=== PATIENT | female | born 1970 | race Caucasian/White ===

== ENCOUNTER 2018-11-28 09:51 | Emergency (ER) | payer BC ==
[2018-11-28 09:55] VITALS: RESP 16; TEMP 97.9
[2018-11-28] MEDS ORDERED: MORPHINE SULFATE 2 MG/ML SYRINGE IM STA (10:18)
[2018-11-28] MEDS ORDERED: ONDANSETRON 4 MG TAB PO STA (10:19)
--- NOTE | 2018-11-28 10:30 | ED ---
Back Pain HPI - General Chief Complaint: Back Pain/Injury Stated Complaint: Back pain Time Seen by Provider: 11/28/18 10:02 Source: patient Limitations: no limitations - History of Present Illness Initial Comments: 47-year-old female with past medical history of hypertension presenting today for chief complaint of "spine burning 3 weeks". Patient states the past 3 weeks she has noticed the gradual onset of a burning sensation midline of her spine-lower aspect, she states that increases stretching. She states it began randomly, no trauma or surgical interventions. Patient states that since the burning sensation has been increasing with today being the worst. Patient states she has had previous injuries over 17 years ago. Patient states she did experience similar back pain in the past as given a steroid injection which alleviated her symptoms and she never needed further evaluation or treatment. Patient denies any fever, history of cancer, history of chronic steroid use, hx of IVDU, recent weight loss, history of tuberculosis or exposure to, loss of sensation of the lower extremities, lower extremity weakness, vaginal or perineal numbness, urinary retention, loss of bowel or bladder control, paresthesias of the lower extremities, no leg pain. Upon ROS pt admits to constipation, remainder of ROS (-), patient denies any recent shortness of breath, chest pain, abdominal pain, vomiting, numbness or tingling, dysuria or hematuria, diarrhea, headaches or visual changes, or any other complaints. - Related Data Home Medications Medication Instructions Recorded Confirmed Aspirin EC [Ecotrin Low Dose] 81 mg PO DAILY 11/28/18 11/28/18 Ibuprofen [Motrin Ib] 600 mg PO Q6H PRN 11/28/18 11/28/18 amLODIPine [Norvasc] 5 mg PO DAILY 11/28/18 11/28/18 Allergies Allergy/AdvReac Type Severity Reaction Status Date / Time codeine Allergy Nausea & Verified 11/28/18 10:13 Vomiting Review of Systems ROS Statement: Those systems with pertinent positive or pertinent negative responses have been documented in the HPI. ROS Other: All systems not noted in ROS Statement are negative. Constitutional: Reports: night sweats (on and off, this has been going on for a year. Pt attributed to age/perimenopause). Denies: fever, chills Respiratory: Denies: cough, dyspnea, wheezes Cardiovascular: Denies: chest pain, palpitations Endocrine: Denies: fatigue Gastrointestinal: Denies: abdominal pain, diarrhea Musculoskeletal: Reports: back pain (Reason sensation and spine) Skin: Denies: rash, lesions Neurological: Denies: headache, weakness, numbness, paresthesias, confusion, abnormal gait Past Medical History Past Medical History: Hypertension History of Any Multi-Drug Resistant Organisms: None Reported Past Surgical History: Tubal Ligation Past Psychological History: No Psychological Hx Reported Smoking Status: Current every day smoker Past Alcohol Use History: Occasional Past Drug Use History: None Reported General Exam - General Exam Comments Initial Comments: General: The patient is awake and alert, in no distress, and does not appear acutely ill. Eye: +3 mm pupils are equal, round and reactive to light, extra-ocular movements are intact. No nystagmus. There is normal conjunctiva bilaterally. No signs of icterus. Ears, nose, mouth and throat: There are moist mucous membranes and no oral lesions. Neck: The neck is supple, there is no tenderness or JVD. Cardiovascular: There is a regular rate and rhythm. No murmur, rub or gallop is appreciated. Respiratory: Lungs are clear to auscultation, respirations are non-labored, breath sounds are equal. No wheezes, stridor, rales, or rhonchi. Gastrointestinal: Soft, non-distended, non-tender abdomen without masses or organomegaly noted. There is no rebound or guarding present. No pulsating masses. No CVA tenderness. Bowel sounds are unremarkable. Musculoskeletal: Normal ROM of the lower extremities, no tenderness. Strength 5/5 of LE b/l. Sensation intact of the lower extremity equally bilaterally including the saddle region. Radial and DP pulses equal bilaterally 2+. Patient is tender midline and paravertberal of the upper lumbar/lower thoracic spine. No erythema or lesions. No warmth to palpation. +2 out of 5 deep tendon reflexes of the patellar and Achilles. Patient is able to heel and toe walk. Patient is ambulating without difficulty. Neurological: A&O x 3. CN II-XII intact, There are no obvious motor or sensory deficits. Coordination appears grossly intact. Speech is normal. Skin: Skin is warm and dry and no rashes or lesions are noted. Psychiatric: Cooperative, appropriate mood & affect, normal judgment. Limitations: no limitations Course Vital Signs 11/28/18 11/28/18 09:52 12:05 Temperature 97.9 F 97.9 F Pulse Rate 85 78 Respiratory 16 16 Rate Blood Pressure 153/89 149/78 O2 Sat by Pulse 97 98 Oximetry Medical Decision Making - Medical Decision Making 47-year-old female presenting with low back pain that increases with for flexion. Describes as a burning sensation. Patient given a steroid injection this morning. Upon arrival patient has elevated blood pressure reading however known history. Afebrile. Appearing well, nontoxic. Ambulating without difficulty. Physical exam and noted above, due to midline tenderness CT without contrast was obtained. CT of thoracic spine revealed degenerative disc disease, facet arthropathy. CT of the lumbar spine revealed minimal degenerative disc disease, severe was at L5-S1 with moderate left neural foraminal narrowing. There are no signs concerning for cauda equina at this time. Upon reevaluation after administration of 2 mg of IM morphine, patient states that she has significant improvement. She states she is not sure if is due to steroid injection, or the medication given in the emergency department. Patient was given and also a prescription for baclofen, naproxen and also steroids. Patient is instructed to take medications as instructed and follow- up with primary care provider with recommendations for outpatient MRI. Patient verbalized understanding of plan. Patient was given strict return parameters including immediate return for developing a fever. Patient is agreeable to plan as well as discharge, stating she is ready to go home. Patient discharged in stable condition appearing well. This case was discussed with Dr. Crouch in detail prior to patient's discharge reviewed imaging, as well as pt PMH. Disposition Clinical Impression: Back pain Disposition: HOME SELF-CARE Condition: Good Instructions: Acute Low Back Pain (ED) Additional Instructions: Please use medication as discussed. Please follow-up with family doctor in the next 2 days, I suggest getting outpatient MRI. Please return to emergency room if the symptoms increase or worsen or for any other concerns, including development of fever. Is patient prescribed a controlled substance at d/c from ED?: No Referrals: Jade Francois MD [Primary Care Provider] - 1-2 days Time of Disposition: 11:56
--- NOTE | 2018-11-28 11:10 | CT ---
EXAMINATION TYPE: CT lumbar spine wo con DATE OF EXAM: 11/28/2018 10:50 AM COMPARISON: None HISTORY: Back spine CT DLP: 555.4 mGycm Automated exposure control for dose reduction was used. TECHNIQUE: Unenhanced CT of the lumbar spine was performed. Bone and soft tissue window settings are submitted as well as coronal and sagittal reconstructions. FINDINGS: There are minimal degenerative changes of the lumbar spine a small interosseous heights. Th e lumbar vertebral body heights and alignment are maintained. No acute fracture or dislocation of the lumbar spine is seen. Pedicles and transverse processes appear unremarkable and intact. Minimal sacr oiliac joint space sclerosis is noted. Paraspinal muscles appear unremarkable on CT. Spinal canal is limited on CT. There is a mild levoscoliosis of the lumbar spine. L1-L2: Normal disc space height. No disc herniation protrusion or central stenosis. No facet joint arthropathy. No evidence for foraminal encroachment. L2-L3: There is a broad-based disc bulge resulting in mild bilateral neural foraminal narrowing witho ut spinal canal stenosis. L3-L4: There is a right eccentric broad-based disc bulge resulting in mild right neural foraminal chace rowing. No significant left neural foraminal narrowing or spinal canal stenosis. L4-L5: There is a broad-based disc bulge resulting in bilateral mild neural foraminal narrowing. No s [place] canal stenosis. L5-S1: There is a left eccentric disc bulge resulting in at least moderate left neural foraminal narr owing. This finding could be further evaluated with MRI. No significant right neural foraminal narrow ing or spinal stenosis. IMPRESSION: 1. No evidence of acute fracture or malalignment of the lumbar spine. 2. Mild levoscoliosis of the lumbar spine. 3. Minimal degenerative disc disease of the lumbar spine most severe at L5-S1 with at least moderate left neural foraminal narrowing. MRI could evaluate for disc herniation and better assess the degree of neural foraminal narrowing and/or spinal canal stenosis.
--- NOTE | 2018-11-28 11:15 | CT ---
EXAMINATION TYPE: CT thoracic spine wo con DATE OF EXAM: 11/28/2018 COMPARISON: None HISTORY: Back pain CT DLP: 483.5 mGycm Automated exposure control for dose reduction was used. Helical acquisition through the cervical spin e. Coronal and sagittal reconstructions. FINDINGS: There is a spinal curvature. Multilevel spondylosis is present. Facet arthropathy changes are present noted incidentally. No evident spinal stenosis. No disc herniation is seen. Thoracic vertebral steffanie s show preserved height, alignment, bone mineralization. No significant foraminal encroachment. The t horacic vertebral bodies are intact. Degenerative disc changes noted in the lower cervical spine. IMPRESSION: DEGENERATIVE DISC DISEASE, FACET ARTHROPATHY. THORACIC MRI MAY BE OF BENEFIT. Additional findings abo ve.
[2018-11-28 12:07] VITALS: BP 149/78; PULSE 78
== END 2018-11-28 12:05 | disposition home or self-care (01) ==
LOC: EC 09:51
DX: M48.07 Spinal stenosis, lumbosacral region (principal); M51.34 Other intervertebral disc degeneration, thoracic region; M51.37 Other intervertebral disc degeneration, lumbosacral region; M46.94 Unspecified inflammatory spondylopathy, thoracic region; I10 Essential (primary) hypertension; F17.200 Nicotine dependence, unspecified, uncomplicated; Z79.82 Long term (current) use of aspirin; Z79.899 Other long term (current) drug therapy; Z88.5 Allergy status to narcotic agent
CPT/HCPCS: 72128; 72131; 99283; 96372; J2270

== ENCOUNTER 2019-07-15 19:50 | Emergency (ER) | payer BC ==
[2019-07-15] MEDS ORDERED: KETOROLAC 30 MG/ML 1 ML VIAL IVP STA (20:11)
[2019-07-15] MEDS ORDERED: SODIUM CHLORIDE 0.9% 1,000 ML IV STA (20:11)
[2019-07-15] MEDS ORDERED: HYDROmorphone 0.5 MG/0.5 ML SYRINGE IVP STA (20:11)
[2019-07-15] MEDS ORDERED: SODIUM CHLORIDE 0.9% 500 ML 500 ML IV STA (20:11)
[2019-07-15] MEDS ORDERED: ONDANSETRON 4 MG/2 ML VIAL IVP STA (20:11)
[2019-07-15 20:12] VITALS: RESP 18
[2019-07-15 20:21] LABS: Appearance,Urine Clear (Clear); Bilirubin,Urine Negative (Negative); Blood,Urine Negative (Negative); Color,Urine Colorless; Glucose,Urine (UA) Negative (Negative); Ketones,Urine Negative (Negative); Leukocyte Esterase,Urine Negative (Negative); Nitrite,Urine Negative (Negative); Protein,Urine Negative (Negative); Specific Gravity,Urine 1.001 (1.001-1.035); Urobilinogen,Urine <2.0 mg/dL (<2.0)
[2019-07-15 20:29] LABS: Basophils # (A) 0.1 k/uL (0-0.2); Basophils % (A) 1 %; Eosinophils # (A) 0.5 k/uL (0-0.7); Eosinophils % (A) 5 %; HCT 45.3 % (34.0-46.0); Lymphocytes # (A) 2.5 k/uL (1.0-4.8); Lymphocytes % (A) 25 %; MCH 29.9 pg (25.0-35.0); MCHC 33.1 g/dL (31.0-37.0); MCV 90.3 fL (80.0-100.0); Mean Platelet Volume 6.5; Monocytes # (A) 0.5 k/uL (0-1.0); Monocytes % (A) 5 %; Neutrophils # (A) 6.1 k/uL (1.3-7.7); Neutrophils % (A) 62 %; Platelet Count 340 k/uL (150-450); RBC 5.02 m/uL (3.80-5.40); RDW 12.8 % (11.5-15.5); WBC 9.9 k/uL (3.8-10.6)
[2019-07-15 20:38] LABS: ALT 24 U/L (9-52); AST 25 U/L (14-36); African American GFR (CKD) >90 (>60 ml/min/1.73 sqM); Albumin 4.7 g/dL (3.5-5.0); Alkaline Phosphatase 84 U/L (38-126); Amylase 76 U/L (30-110); Anion Gap 10 mmol/L; Blood Urea Nitrogen 14 mg/dL (7-17); Calcium 9.8 mg/dL (8.4-10.2); Carbon Dioxide 23 mmol/L (22-30); Chloride 108 mmol/L (98-107); Glucose 82 mg/dL (74-99); Non-African American GFR(CKD) >90 (>60 ml/min/1.73 sqM); Potassium 3.9 mmol/L (3.5-5.1); Sodium 141 mmol/L (137-145); Total Bilirubin 0.3 mg/dL (0.2-1.3); Total Protein 7.4 g/dL (6.3-8.2)
--- NOTE | 2019-07-15 20:38 | ED ---
Back Pain HPI - General Chief Complaint: Back Pain/Injury Stated Complaint: Flank pain Time Seen by Provider: 07/15/19 19:59 Source: patient, RN notes reviewed Limitations: no limitations - History of Present Illness Initial Comments: 48-year-old female presents emergency from chief complaint left flank pain. Patient states she's had some pain region just felt there was just her regular back pain but states this pain is intense. Patient states it's not helping even though she's been taken mobic. Patient states that she has no bowel bladder incontinence or retention she did have recent surgery on her right hand at constipation related to pain medication. Patient has no vomiting or nausea. No fevers or chills. Patient states the pain is worse with movement. - Related Data Home Medications Medication Instructions Recorded Confirmed Aspirin EC [Ecotrin Low Dose] 81 mg PO DAILY 11/28/18 11/28/18 Ibuprofen [Motrin Ib] 600 mg PO Q6H PRN 11/28/18 11/28/18 amLODIPine [Norvasc] 5 mg PO DAILY 11/28/18 11/28/18 Previous Rx's Medication Instructions Recorded HYDROcodone/APAP 7.5-325MG [[place] 1 tab PO Q6HR PRN 3 Days #12 tab 07/15/19 7.5-325] Methocarbamol [Robaxin] 500 mg PO TID PRN #15 tab 07/15/19 Allergies Allergy/AdvReac Type Severity Reaction Status Date / Time No Known Allergies Allergy Verified 07/15/19 20:05 Review of Systems ROS Statement: Those systems with pertinent positive or pertinent negative responses have been documented in the HPI. ROS Other: All systems not noted in ROS Statement are negative. Past Medical History Past Medical History: Hypertension Additional Past Medical History / Comment(s): back pain History of Any Multi-Drug Resistant Organisms: None Reported Past Surgical History: Tubal Ligation Additional Past Surgical History / Comment(s): carpel tunnel Past Psychological History: No Psychological Hx Reported Smoking Status: Current every day smoker Past Alcohol Use History: Occasional Past Drug Use History: None Reported General Exam Limitations: no limitations General appearance: alert, in no apparent distress Neck exam: Present: normal inspection, full ROM. Absent: tenderness, meningismus, lymphadenopathy Respiratory exam: Present: normal lung sounds bilaterally. Absent: respiratory distress, wheezes, rales, rhonchi, stridor Cardiovascular Exam: Present: regular rate, normal rhythm, normal heart sounds. Absent: systolic murmur, diastolic murmur, rubs, gallop, clicks Extremities exam: Present: normal inspection, full ROM, normal capillary refill. Absent: tenderness, pedal edema, joint swelling, calf tenderness Back exam: Present: full ROM. Absent: tenderness, CVA tenderness (R), CVA tenderness (L), paraspinal tenderness, vertebral tenderness Neurological exam: Present: alert, oriented X3, CN II-XII intact Skin exam: Present: warm, dry, intact, normal color. Absent: rash Course Vital Signs 07/15/19 20:02 Temperature 97.6 F Pulse Rate 82 Respiratory 18 Rate Blood Pressure 143/90 O2 Sat by Pulse 98 Oximetry Medical Decision Making - Medical Decision Making 48-year-old female presents emergency department for left flank pain. CT shows some nonspecific perinephric edema, urinalysis labs unremarkable. Patient's p ain may be muscle skeletal nature she will follow-up with urology for this edema and will be given pain medication. Close follow-up was discussed. - Lab Data Result diagrams: 07/15/19 20:20 07/15/19 20:20 Lab Results 07/15/19 07/15/19 07/15/19 Range/Units 20:00 20:20 20:20 WBC 9.9 (3.8-10.6) k/uL RBC 5.02 (3.80-5.40) m/uL Hgb 15.0 (11.4-16.0) gm/dL Hct 45.3 (34.0-46.0) % MCV 90.3 (80.0-100.0) fL MCH 29.9 (25.0-35.0) pg MCHC 33.1 (31.0-37.0) g/dL RDW 12.8 (11.5-15.5) % Plt Count 340 (150-450) k/uL Neutrophils % 62 % Lymphocytes % 25 % Monocytes % 5 % Eosinophils % 5 % Basophils % 1 % Neutrophils # 6.1 (1.3-7.7) k/uL Lymphocytes # 2.5 (1.0-4.8) k/uL Monocytes # 0.5 (0-1.0) k/uL Eosinophils # 0.5 (0-0.7) k/uL Basophils # 0.1 (0-0.2) k/uL Sodium 141 (137-145) mmol/L Potassium 3.9 (3.5-5.1) mmol/L Chloride 108 H (98-107) mmol/L Carbon Dioxide 23 (22-30) mmol/L Anion Gap 10 mmol/L BUN 14 (7-17) mg/dL Creatinine 0.63 (0.52-1.04) mg/dL Est GFR (CKD-EPI)AfAm >90 (>60 ml/min/1.73 sqM) Est GFR (CKD-EPI)NonAf >90 (>60 ml/min/1.73 sqM) Glucose 82 (74-99) mg/dL Calcium 9.8 (8.4-10.2) mg/dL Total Bilirubin 0.3 (0.2-1.3) mg/dL AST 25 (14-36) U/L ALT 24 (9-52) U/L Alkaline Phosphatase 84 (38-126) U/L Total Protein 7.4 (6.3-8.2) g/dL Albumin 4.7 (3.5-5.0) g/dL Amylase 76 (30-110) U/L Lipase 194 (23-300) U/L Urine Color Colorless Urine Appearance Clear (Clear) Urine pH 7.0 (5.0-8.0) Ur Specific [place] 1.001 (1.001-1.035) Urine Protein Negative (Negative) Urine Glucose (UA) Negative (Negative) Urine Ketones Negative (Negative) Urine Blood Negative (Negative) Urine Nitrite Negative (Negative) Urine Bilirubin Negative (Negative) Urine Urobilinogen <2.0 (<2.0) mg/dL Ur Leukocyte Esterase Negative (Negative) Disposition Clinical Impression: Mid back pain Narrative: pernephric edema Disposition: HOME SELF-CARE Condition: Stable Instructions (If sedation given, give patient instructions): Acute Low Back Pain (ED) Additional Instructions: Please return to the Emergency Department if symptoms worsen or any other concerns. Prescriptions: HYDROcodone/APAP 7.5-325MG [[place] 7.5-325] 1 tab PO Q6HR PRN 3 Days #12 tab PRN Reason: Pain Methocarbamol [Robaxin] 500 mg PO TID PRN #15 tab PRN Reason: muscle spasms Is patient prescribed a controlled substance at d/c from ED?: Yes When asked, does pt state using other controlled substances?: No If prescribed controlled substance>3 days was MAPS reviewed?: Prescribed <3 Days If opioid is for acute pain is fill amount 7 days or less?: Yes If Rx opioid, was Start Talking consent form obtained?: Yes Referrals: Jade Francois MD [Primary Care Provider] - 1-2 days Víctor Malone MD [STAFF PHYSICIAN] - 1-2 days Time of Disposition: 21:17
--- NOTE | 2019-07-15 21:03 | CT ---
EXAMINATION TYPE: CT abdomen pelvis w con DATE OF EXAM: 07/15/2019 COMPARISON: None HISTORY: LLQ/FLANK PAIN CT DLP: 761.7 mGycm Automated exposure control for dose reduction was used. TECHNIQUE: Helical acquisition of images was performed from the lung bases through the pelvis. CONTRAST: Performed without Oral Contrast and with IV Contrast, patient injected with 100 mL of Isovue 300. FINDINGS: There is some mild atelectasis at the lung bases. Heart size is normal. There is no pericardial effus ion. There is no pleural effusion. Liver appears normal. Gallbladder appears normal. Spleen appears n ormal. There is no pancreatic mass. Bile ducts are not dilated. Stomach appears normal. There is no adrenal mass. Kidneys show satisfactory contrast opacification. There is no hydronephrosi s. There is minimal bilateral perinephric edema. There is no evidence of a renal mass. There is no re troperitoneal adenopathy. Bladder distends smoothly. There is no inguinal hernia. There is no free fl uid in the pelvis. There is no sign of a bowel obstruction. Appendix appears normal. There is no free air or fluid. Bony pelvis is intact. Lumbar spine is intact . There is no compression fracture. IMPRESSION: THERE IS MINIMAL BILATERAL PERINEPHRIC EDEMA OF UNCERTAIN SIGNIFICANCE. NO RENAL MASS OR OBSTRUCTION. NO EVIDENCE OF RENAL CALCULUS. NORMAL APPENDIX. MILD ATELECTASIS AT THE LUNG BASES.
[2019-07-15 21:30] VITALS: BP 127/90; PULSE 68; TEMP 98
== END 2019-07-15 21:30 | disposition home or self-care (01) ==
LOC: EC 19:50
DX: M54.9 Dorsalgia, unspecified (principal); R10.9 Unspecified abdominal pain; N28.89 Other specified disorders of kidney and ureter; I10 Essential (primary) hypertension; F17.200 Nicotine dependence, unspecified, uncomplicated; Z98.51 Tubal ligation status; Z79.82 Long term (current) use of aspirin; Z79.899 Other long term (current) drug therapy
CPT/HCPCS: 36415; 80053; 82150; 83690; 85025; 81003; 74177; 99284; 96374; 96375 ×2; 96361; J2405; J1885; J1170; Q9967

== ENCOUNTER 2019-07-18 08:04 | Emergency (ER) | payer BC ==
[2019-07-18 08:31] VITALS: BP 127/85; PULSE 90; RESP 20; TEMP 97.5
[2019-07-18 09:00] LABS: Appearance,Urine Cloudy (Clear); Bacteria,Urine Rare /hpf; Bilirubin,Urine Negative (Negative); Blood,Urine Negative (Negative); Color,Urine Light Yellow; Glucose,Urine (UA) Negative (Negative); Ketones,Urine Negative (Negative); Leukocyte Esterase,Urine Negative (Negative); Nitrite,Urine Negative (Negative); Protein,Urine Negative (Negative); RBC,Urine 1 /hpf (0-5); Specific Gravity,Urine 1.005 (1.001-1.035); Squamous Epithelial Cell,Urine 24 /hpf (0-4); Urobilinogen,Urine <2.0 mg/dL (<2.0)
[2019-07-18] MEDS ORDERED: ONDANSETRON 4 MG/2 ML VIAL IVP STA (09:37)
[2019-07-18] MEDS ORDERED: ORPHENADRINE 30 MG/ML 2 ML VIAL IVP STA (09:37)
[2019-07-18] MEDS ORDERED: HYDROmorphone 1 MG/ML 1 ML SYRINGE IVP STA (09:37)
[2019-07-18] MEDS ORDERED: SODIUM CHLORIDE 0.9% 1,000 ML IV STA (09:37)
[2019-07-18] MEDS ORDERED: HYDROmorphone 0.5 MG/0.5 ML SYRINGE IVP STA (09:58)
[2019-07-18 10:40] LABS: Basophils # (A) 0.1 k/uL (0-0.2); Basophils % (A) 1 %; Eosinophils # (A) 0.3 k/uL (0-0.7); Eosinophils % (A) 3 %; HGB 15.2 gm/dL (11.4-16.0); Lymphocytes # (A) 1.6 k/uL (1.0-4.8); Lymphocytes % (A) 21 %; MCH 30.3 pg (25.0-35.0); MCHC 33.1 g/dL (31.0-37.0); MCV 91.4 fL (80.0-100.0); Mean Platelet Volume 6.3; Monocytes # (A) 0.5 k/uL (0-1.0); Monocytes % (A) 6 %; Neutrophils # (A) 5.4 k/uL (1.3-7.7); Neutrophils % (A) 68 %; Platelet Count 370 k/uL (150-450); RBC 5.03 m/uL (3.80-5.40)
[2019-07-18 10:43] LABS: ALT 43 U/L (9-52); AST 42 U/L (14-36); African American GFR (CKD) >90 (>60 ml/min/1.73 sqM); Albumin 4.4 g/dL (3.5-5.0); Alkaline Phosphatase 78 U/L (38-126); Amylase 62 U/L (30-110); Anion Gap 10 mmol/L; Blood Urea Nitrogen 8 mg/dL (7-17); Calcium 9.5 mg/dL (8.4-10.2); Carbon Dioxide 26 mmol/L (22-30); Chloride 105 mmol/L (98-107); Glucose 82 mg/dL (74-99); Sodium 141 mmol/L (137-145); Total Bilirubin 0.5 mg/dL (0.2-1.3); Total Protein 7.3 g/dL (6.3-8.2)
--- NOTE | 2019-07-18 10:43 | ED ---
Abdominal Pain HPI - General Chief Complaint: Abdominal Pain Stated Complaint: LEFT FLANK PAIN Time Seen by Provider: 07/18/19 09:37 Source: patient, RN notes reviewed Mode of arrival: ambulatory Limitations: no limitations - History of Present Illness Initial Comments: 48-year-old female presents emergency Department chief complaint of left-sided pain. Patient states she's had [address] of abdomen and pelvis states the pain is more in her upper abdomen and back but states it moved up into her chest region. Patient states she has no anterior she has more posterior left chest. It up into her neck. She doesn't admit that some symptoms do worsen with movement she has a history of hypertension. Patient also states that she had recent surgery on her right hand has been very sedentary. Patient reports no fevers or chills denies any current nausea vomiting diarrhea she has noted some constipation though she contributes this to her pain meds. - Related Data Home Medications Medication Instructions Recorded Confirmed amLODIPine [Norvasc] 10 mg PO DAILY 07/18/19 07/18/19 Previous Rx's Medication Instructions Recorded HYDROcodone/APAP 7.5-325MG [[place] 1 tab PO Q6HR PRN 3 Days #12 tab 07/15/19 7.5-325] Methocarbamol [Robaxin] 500 mg PO TID PRN #15 tab 07/15/19 Allergies Allergy/AdvReac Type Severity Reaction Status Date / Time No Known Allergies Allergy Verified 07/18/19 09:36 Review of Systems ROS Statement: Those systems with pertinent positive or pertinent negative responses have been documented in the HPI. ROS Other: All systems not noted in ROS Statement are negative. Past Medical History Past Medical History: Hypertension Additional Past Medical History / Comment(s): back pain History of Any Multi-Drug Resistant Organisms: None Reported Past Surgical History: Tubal Ligation Additional Past Surgical History / Comment(s): carpel tunnel Past Psychological History: No Psychological Hx Reported Smoking Status: Current every day smoker Past Alcohol Use History: Occasional Past Drug Use History: None Reported General Exam Limitations: no limitations General appearance: alert, in no apparent distress Head exam: Present: atraumatic, normocephalic, normal inspection Eye exam: Present: normal appearance, PERRL, EOMI. Absent: scleral icterus, conjunctival injection, periorbital swelling ENT exam: Present: normal exam, normal oropharynx, mucous membranes moist Neck exam: Present: normal inspection, full ROM. Absent: tenderness, meningismus, lymphadenopathy Respiratory exam: Present: normal lung sounds bilaterally, chest wall tenderness (Left-sided posterior). Absent: respiratory distress, wheezes, rales, rhonchi, stridor Cardiovascular Exam: Present: regular rate, normal rhythm, normal heart sounds. Absent: systolic murmur, diastolic murmur, rubs, gallop, clicks GI/Abdominal exam: Present: soft, normal bowel sounds. Absent: distended, tende rness, guarding, rebound, rigid Back exam: Absent: CVA tenderness (R), CVA tenderness (L) Skin exam: Present: warm, dry, intact, normal color. Absent: rash Course Vital Signs 07/18/19 08:28 Temperature 97.5 F L Pulse Rate 90 Respiratory 20 Rate Blood Pressure 127/85 O2 Sat by Pulse 99 Oximetry Medical Decision Making - Medical Decision Making 48-year-old female presents emergency department for side pain. Patient's pain is reproducible worse with movement. This felt to be muscle skeletal as she was diagnosed a few days ago with. Patient has no current chest pain. Patient is improved after pain meds and Norflex. Patient states that she prefers to be discharged and will follow-up with her neurologist return parameters were discussed. - Lab Data Result diagrams: 07/18/19 10:12 07/18/19 10:12 Lab Results 07/18/19 07/18/19 07/18/19 Range/Units 08:30 10:12 10:12 WBC 8.0 (3.8-10.6) k/uL RBC 5.03 (3.80-5.40) m/uL Hgb 15.2 (11.4-16.0) gm/dL Hct 46.0 (34.0-46.0) % MCV 91.4 (80.0-100.0) fL MCH 30.3 (25.0-35.0) pg MCHC 33.1 (31.0-37.0) g/dL RDW 13.0 (11.5-15.5) % Plt Count 370 (150-450) k/uL Neutrophils % 68 % Lymphocytes % 21 % Monocytes % 6 % Eosinophils % 3 % Basophils % 1 % Neutrophils # 5.4 (1.3-7.7) k/uL Lymphocytes # 1.6 (1.0-4.8) k/uL Monocytes # 0.5 (0-1.0) k/uL Eosinophils # 0.3 (0-0.7) k/uL Basophils # 0.1 (0-0.2) k/uL D-Dimer (<0.60) mg/L FEU Sodium 141 (137-145) mmol/L Potassium 4.0 (3.5-5.1) mmol/L Chloride 105 (98-107) mmol/L Carbon Dioxide 26 (22-30) mmol/L Anion Gap 10 mmol/L BUN 8 (7-17) mg/dL Creatinine 0.60 (0.52-1.04) mg/dL Est GFR (CKD-EPI)AfAm >90 (>60 ml/min/1.73 sqM) Est GFR (CKD-EPI)NonAf >90 (>60 ml/min/1.73 sqM) Glucose 82 (74-99) mg/dL Calcium 9.5 (8.4-10.2) mg/dL Total Bilirubin 0.5 (0.2-1.3) mg/dL AST 42 H (14-36) U/L ALT 43 (9-52) U/L Alkaline Phosphatase 78 (38-126) U/L Troponin I (0.000-0.034) ng/mL Total Protein 7.3 (6.3-8.2) g/dL Albumin 4.4 (3.5-5.0) g/dL Amylase 62 (30-110) U/L Lipase 114 (23-300) U/L Urine Color Light Yellow Urine Appearance Cloudy H (Clear) Urine pH 6.0 (5.0-8.0) Ur Specific [place] 1.005 (1.001-1.035) Urine Protein Negative (Negative) Urine Glucose (UA) Negative (Negative) Urine Ketones Negative (Negative) Urine Blood Negative (Negative) Urine Nitrite Negative (Negative) Urine Bilirubin Negative (Negative) Urine Urobilinogen <2.0 (<2.0) mg/dL Ur Leukocyte Esterase Negative (Negative) Urine RBC 1 (0-5) /hpf Urine WBC 1 (0-5) /hpf Ur Squamous Epith Cells 24 H (0-4) /hpf Urine Bacteria Rare H (None) /hpf 07/18/19 07/18/19 Range/Units 10:12 10:12 WBC (3.8-10.6) k/uL RBC (3.80-5.40) m/uL Hgb (11.4-16.0) gm/dL Hct (34.0-46.0) % MCV (80.0-100.0) fL MCH (25.0-35.0) pg MCHC (31.0-37.0) g/dL RDW (11.5-15.5) % Plt Count (150-450) k/uL Neutrophils % % Lymphocytes % % Monocytes % % Eosinophils % % Basophils % % Neutrophils # (1.3-7.7) k/uL Lymphocytes # (1.0-4.8) k/uL Monocytes # (0-1.0) k/uL Eosinophils # (0-0.7) k/uL Basophils # (0-0.2) k/uL D-Dimer 0.65 H (<0.60) mg/L FEU Sodium (137-145) mmol/L Potassium (3.5-5.1) mmol/L Chloride (98-107) mmol/L Carbon Dioxide (22-30) mmol/L Anion Gap mmol/L BUN (7-17) mg/dL Creatinine (0.52-1.04) mg/dL Est GFR (CKD-EPI)AfAm (>60 ml/min/1.73 sqM) Est GFR (CKD-EPI)NonAf (>60 ml/min/1.73 sqM) Glucose (74-99) mg/dL Calcium (8.4-10.2) mg/dL Total Bilirubin (0.2-1.3) mg/dL AST (14-36) U/L ALT (9-52) U/L Alkaline Phosphatase (38-126) U/L Troponin I <0.012 (0.000-0.034) ng/mL Total Protein (6.3-8.2) g/dL Albumin (3.5-5.0) g/dL Amylase (30-110) U/L Lipase (23-300) U/L Urine Color Urine Appearance (Clear) Urine pH (5.0-8.0) Ur Specific [place] (1.001-1.035) Urine Protein (Negative) Urine Glucose (UA) (Negative) Urine Ketones (Negative) Urine Blood (Negative) Urine Nitrite (Negative) Urine Bilirubin (Negative) Urine Urobilinogen (<2.0) mg/dL Ur Leukocyte Esterase (Negative) Urine RBC (0-5) /hpf Urine WBC (0-5) /hpf Ur Squamous Epith Cells (0-4) /hpf Urine Bacteria (None) /hpf - EKG Data EKG Comments: EKG performed at 1004 normal sinus rhythm rate of 68 VA 146/82 QT/QTC 426 for [address] elevation or depression. Disposition Clinical Impression: Thoracic back pain Disposition: HOME SELF-CARE Condition: Stable Instructions (If sedation given, give patient instructions): Back Pain (ED) Additional Instructions: Please return to the Emergency Department if symptoms worsen or any other concerns. Is patient prescribed a controlled substance at d/c from ED?: No Referrals: Jade Francois MD [Primary Care Provider] - 1-2 days Time of Disposition: 12:03
--- NOTE | 2019-07-18 11:37 | XR ---
EXAMINATION TYPE: XR chest 2V DATE OF EXAM: 07/18/2019 COMPARISON: NONE HISTORY: Left flank pain and chest pain TECHNIQUE: Frontal and lateral views of the chest are obtained. FINDINGS: There is no focal air space opacity, pleural effusion, or pneumothorax seen. The cardiac silhouette size is within normal limits. The osseous structures are intact. Minimal multilevel dege nerative changes of the spine. IMPRESSION: No acute cardiopulmonary process.
--- NOTE | 2019-07-18 11:38 | CT ---
EXAMINATION TYPE: CT chest angio for PE DATE OF EXAM: 07/18/2019 COMPARISON: NONE HISTORY: SOB, elevated d dimer, Lt chest pain CT DLP: 272.4 mGycm. Automated Exposure Control for Dose Reduction was Utilized. CONTRAST: CTA scan of the thorax is performed with IV Contrast, patient injected with 72 mL of Isovue 370, pulm onary embolism protocol. MIP Images are created on CT scanner and reviewed. FINDINGS: LUNGS: There is bibasilar linear scarring and/or atelectasis, left greater than right. No suspicious focal consolidation. No pleural effusion or pneumothorax. Tracheobronchial tree is patent. No suspici ous nodules or masses. MEDIASTINUM: There is satisfactory enhancement of the pulmonary artery and its branches, there is no CT evidence for pulmonary embolism. There are no greater than 1 cm hilar or mediastinal lymph nodes. No cardiomegaly or pericardial effusion is seen. OTHER: Slight S-shaped scoliotic curvature. IMPRESSION: No CT evidence for acute pulmonary embolism. No suspicious acute pulmonary process.
== END 2019-07-18 12:23 | disposition home or self-care (01) ==
LOC: EC 08:04
DX: M54.6 Pain in thoracic spine (principal); I10 Essential (primary) hypertension; F17.200 Nicotine dependence, unspecified, uncomplicated; Z79.899 Other long term (current) drug therapy
CPT/HCPCS: 36415; 93005; 85379; 80053; 82150; 83690; 84484; 85025; 81001; 71046; 71275; 99284; 96374; 96375 ×2; 96361 ×2; J2360; J2405; J1170; Q9967

== ENCOUNTER 2021-10-21 08:54 | Emergency (ER) | payer BC ==
[2021-10-21 09:24] VITALS: TEMP 98
--- NOTE | 2021-10-21 11:51 | CT ---
EXAMINATION TYPE: CT brain cspine wo con DATE OF EXAM: 10/21/2021 COMPARISON: CT brain and cervical spine March 28, 2010 HISTORY: Left sided neck and arm pain with arm weakness. Headache. CT DLP: 1403.4 mGycm. Automated Exposure Control for Dose Reduction was Utilized. TECHNIQUE: CT scan of the head and cervical spine are performed without contrast. FINDINGS: There is no acute intracranial hemorrhage, mass effect, or midline shift identified. The ventricles and sulci are within normal limits in size. Snow-white matter differentiation fairly well -preserved. The globes are intact and the visualized sinuses are clear. Cervical spine is visualized in its entirety from C1 through upper thoracic levels and demonstrates s ome loss of normal cervical curvature more prominent than prior without evidence of acute fracture or dislocation. Prevertebral soft tissue appears within normal limits. The C1-C2 articulation is norm al limits on the coronal images. Vertebral body heights are maintained. Mild to moderate disc space narrowing C5-C6 and moderate disc space narrowing C6-C7 levels with moderate anterior and posterior s purring is more prominent than prior study. Posterior spur disc complexes efface the anterior thecal sac at these levels greater at C6-C7 level and are more prominent than prior study. Axial images show thyroid gland to appear within normal limits. Lung apices show no pneumothorax. IMPRESSION: No acute findings are evident.
[2021-10-21] MEDS ORDERED: ORPHENADRINE 30 MG/ML 2 ML VIAL IM STA (12:35)
--- NOTE | 2021-10-21 12:54 | ED ---
Neck Injury/Pain HPI - General Chief Complaint: Neck Pain/Injury Stated Complaint: Lt Arm Numbness Time Seen by Provider: 10/21/21 12:31 Source: RN notes reviewed Mode of arrival: ambulatory Limitations: no limitations - History of Present Illness Initial Comments: Patient is a 50-year-old female that presents to the emergency department with left-sided neck pain. She notes she was reaching into a cupboard when she felt a pop. She notes this was approximately 6 days ago. She came in for evaluation today due to continuing pain. Patient notes that she is a side sleeper and does cross her arms over her chest on her side. Patient denied any injury or trauma. She was otherwise well-appearing. She did have full range of motion strength and sensation in her bilateral upper extremities. Patient denied any chest pain shortness of breath nausea vomiting diarrhea constipation fever fatigue chills. - Related Data Home Medications Medication Instructions Recorded Confirmed amLODIPine [Norvasc] 10 mg PO DAILY 07/18/19 07/18/19 Previous Rx's Medication Instructions Recorded HYDROcodone/APAP 7.5-325MG [[place] 1 tab PO Q6HR PRN 3 Days #12 tab 07/15/19 7.5-325] methocarbamoL [Robaxin] 500 mg PO TID PRN #15 tab 07/15/19 Baclofen 5 mg PO TID 5 Days #15 tablet 10/21/21 Allergies Allergy/AdvReac Type Severity Reaction Status Date / Time fentanyl AdvReac Nausea & Verified 10/21/21 09:24 Vomiting Review of Systems ROS Statement: Those systems with pertinent positive or pertinent negative responses have been documented in the HPI. ROS Other: All systems not noted in ROS Statement are negative. Past Medical History Past Medical History: Hypertension Additional Past Medical History / Comment(s): back pain, CRPS History of Any Multi-Drug Resistant Organisms: None Reported Past Surgical History: Tubal Ligation Additional Past Surgical History / Comment(s): carpel tunnel Past Psychological History: No Psychological Hx Reported Past Alcohol Use History: Occasional Past Drug Use History: None Reported General Exam Limitations: no limitations General appearance: alert, in no apparent distress Head exam: Present: atraumatic, normocephalic, normal inspection Eye exam: Present: normal appearance, PERRL, EOMI. Absent: scleral icterus, conjunctival injection, periorbital swelling ENT exam: Present: normal exam, mucous membranes moist Neck exam: Present: normal inspection, tenderness (Left sided scalenes and upper trapezius point tenderness.). Absent: meningismus, lymphadenopathy Respiratory exam: Present: normal lung sounds bilaterally. Absent: respiratory distress, wheezes, rales, rhonchi, stridor Cardiovascular Exam: Present: regular rate, normal rhythm, normal heart sounds. Absent: systolic murmur, diastolic murmur, rubs, gallop, clicks GI/Abdominal exam: Present: soft, normal bowel sounds. Absent: distended, tenderness, guarding, rebound, rigid Extremities exam: Present: normal inspection, full ROM, normal capillary refill. Absent: tenderness, pedal edema, joint swelling, calf tenderness Neurological exam: Present: alert, oriented X3 Psychiatric exam: Present: normal affect, normal mood Skin exam: Present: warm, dry, intact, normal color. Absent: rash Course Vital Signs 10/21/21 09:19 Temperature 98.0 F Pulse Rate 89 Respiratory 18 Rate Blood Pressure 142/89 O2 Sat by Pulse 96 Oximetry Medical Decision Making - Medical Decision Making 50-year-old female complaining of left-sided neck pain with no injury or trauma. CT of the head and C-spine ordered. CT negative for any acute process. Given patient's point tenderness and history most likely has a muscle strain of the left side of her neck muscles. 60 mg of Norflex ordered. Patient is agreeable with discharge home with follow-up to primary care. This discussed with Dr. Crouch, patient discharge home. - Radiology Data Radiology results: report reviewed, image reviewed CT of the head and C-spine: No acute findings are evident. Disposition Clinical Impression: Cervical muscle strain Disposition: HOME SELF-CARE Condition: Stable Instructions (If sedation given, give patient instructions): Cervical Strain (ED) Additional Instructions: Please return to the Emergency Department if symptoms worsen or any other concerns. Follow-up with primary care 1-2 days. Take muscle relaxer as prescribed. Is patient prescribed a controlled substance at d/c from ED?: No Referrals: Jade Francois MD [Primary Care Provider] - 1-2 days Time of Disposition: 13:24
[2021-10-21 14:03] VITALS: BP 124/70; PULSE 74; RESP 16
== END 2021-10-21 14:02 | disposition home or self-care (01) ==
LOC: EC 08:54
DX: S16.1XXA Strain of muscle, fascia and tendon at neck level, initial encounter (principal); I10 Essential (primary) hypertension; Z98.51 Tubal ligation status; X50.0XXA Overexertion from strenuous movement or load, initial encounter
CPT/HCPCS: 99284; 96372; 72125; 70450; J2360; 93005

== ENCOUNTER → 2023-04-12 | Outpatient (CLI) | payer BC, MEDICARE ==
--- NOTE | 2023-04-12 07:12 | MR ---
EXAMINATION TYPE: MR lumbar spine wo con DATE OF EXAM: 04/12/2023 COMPARISON: NONE HISTORY: Back pain into rt side x 4 years TECHNIQUE: Multiplanar, multisequence imaging of the lumbar spine is performed without IV contrast. FINDINGS: There is levoconvex scoliosis centered at L3 level. There is slight grade 1 retrolisthesis of L2 on L3 on sagittal images. Vertebral body heights are maintained. There is multilevel disc desic cation with mild to moderate disc space narrowing at L2-L3 and mild disc space narrowing at L4-L5 lev els. Modic type I endplate changes noted at L2-L3 level. The conus medullaris is normal in position and signal ending mid L1 level. Axial images at T12-L1 and L1-L2 levels appear within normal limits. Axial images at L2-L3 level shows mild broad-based disc bulge mildly effacing the anterior thecal sac along with mild right-sided facet arthropathy slightly effacing right lateral thecal sac. Bilateral neural foramina remain patent. Axial images at L3-L4 level shows mild to moderate broad disc bulge minimally effacing the anterior t hecal sac along with mild facet arthropathy bilaterally. There is [id number] right-sided anteri or inferior neural foraminal narrowing. Axial images at L4-L5 level show mild broad disc bulge and mild facet arthropathy bilaterally. There is minimal effacement of the anterior thecal sac. There is [id number] right-sided anterior infe rior neural foraminal narrowing. Left-sided neural foramen is patent. Axial images at L5-S1 level shows mild to moderate facet arthropathy bilaterally. There is focal cent ral disc protrusion. Spinal canal is preserved. There is left foraminal disc protrusion component cau sing [id number] left-sided neural foraminal narrowing. Right-sided neural foramen is patent. Paraspinal muscle bulk is maintained. IMPRESSION: Scoliosis with multilevel degenerative change in the lumbar spine as detailed above.
== END | disposition home or self-care (01) ==
LOC: RADMRIMAIN 05:46
PROVIDERS: ATTEND Physician Assistant
DX: M47.26 Other spondylosis with radiculopathy, lumbar region (principal); M54.42 Lumbago with sciatica, left side; M54.41 Lumbago with sciatica, right side; G89.29 Other chronic pain
CPT/HCPCS: 72148

== ENCOUNTER → 2023-07-15 | Outpatient (CLI) | payer BC, MEDICARE ==
[2023-07-15 14:02] VITALS: BP 154/94; PULSE 101; RESP 15; TEMP 98.1
--- NOTE | 2023-07-15 14:19 | P.PAINPG ---
PQRS Measure Charge Sheet Comment: HISTORY OF PRESENT ILLNESS: 52 yr old female as a referral from Dr Vaughn Urban presents today w severe and chronic R wrist pain secondary to CRPS due to R wrist surgery for evaluation. Pt states pain level is provoked at 7/10 in intensity, constant, localized in the RUE, sharp, stabbing in character w shooting pain towards the R shoulder. Pain is provoked by cold and stress. Pain is alleviated by PT semi weekly since February 2023 till current, medications (Neurontin, Tyl #3, Tyl Arthritis), ice, repositioning and rest. Oswestry axial pain score at 20. Discussed follow up w [facility] Functional Medicine physician for additional treatment options. PMH: OA, HTN, CRPS PSH: Tubal Ligation, Carpal Tunnel Release SH: No Tobacco use, Occasional ETOH use, No illicit drug use FH: Non contributory All: See list Meds: See list REVIEW OF ORGAN SYSTEMS: CONSTITUTIONAL: No fevers or chills. No recent weight loss. NEUROLOGICAL: + numbness and tingling along the distal extremities. No seizure disorders or headaches. MUSCULOSKELETAL: + pain PSYCHIATRIC: Denies current depression or suicidal thoughts. Physical Examinations : Constitutional : Cooperative , not in acute distress . Neurologic : Cranial nerve II to XII intact. No focal neurological deficits. Psychiatric : alert & oriented x 3. Matching mood & appropriate affect. Judgment & insight intact. Musculoskeletal : R Tinel Sign, R Phalen Sign Cervical Spine Motor strength in the deltoid and biceps: Normal right side. Normal Left side Motor strength biceps and the wrist extensors: Normal right side . Normal left side Motor strength in the triceps muscle: Normal right side. Normal left side Deep tendon reflexes: Normal at the biceps. Normal at Brachioradialis. Normal at triceps Vertebral body tenderness to deep palpation over Cervical facet loading test: positive bilaterally Spurling test: positive bilaterally Neck distraction test: positive bilaterally Alix sign: positive bilaterally Lumbar spine Motor strength lower extremities ,thigh and legs 5/5 Right side , 5/5 Left side Deep tendon reflexes : Normal Knee Jerk. Normal Ankle Jerk Vertebral body tenderness over Torres Test positive Lumbar facet Loading Test: positive Right / positive Left Range of motion of the lumbar spine Fl exion 30 degrees, extension 10 degrees Straight Leg Raise test: Left/ Right positive at degree Dave test: positive right / positive left. Severe tenderness over the Sacroiliac joint on the Right / Left sides Gaenslen test: positive bilaterally Seated flexion test: positive bilaterally. Sacral spine : Severe tenderness over the Sacroiliac joint: right side / left side Range of motion: Flexion of the lumbar spine <60 degrees Range of motion: Extension of the lumbar spine <20 degrees Gaenslen's Test positive Reginald's Test positive Dave test: positive right side / left side Thigh Thrust Test Sacral Thrust Test Imaging: MRI noncontrast of the lumbar spine from 04/12/23 reviewed Assessment/ Plan : Lumbar levoconvex scoliosis Recommendation of R TFESI C6-C7 #1. May need a series of injections for optimal pain relief. Risks, benefits of procedure discussed and patient verbalized understanding. Admits to aspirin or anti- coagulant use or medical history of diabetes. Protocol for discontinuation/ continuation of medications wil procedure discussed. Minimal anesthesia provided, if clinically indicated, consisting of Versed and Fentanyl. All questions answered. I have spent greater than 30 minutes on patient care today. Dr Maldonado was available by phone for the evaluation of this patient. The time was used to review the medical records including relevant urine studies and Prescription history (MAPs), review of the available imaging, evaluation and examination of the patient, coordination of care with the medical staff and if applicable referring physicians, as well as creation of the medical record PQRS Narrative: Smoking Status Current every day smoker Home Medications: Ambulatory Orders HYDROcodone/APAP 7.5-325MG [[place] 7.5-325] 1 tab PO Q6HR PRN 3 Days #12 tab 07/15/19 methocarbamoL [Robaxin] 500 mg PO TID PRN #15 tab 07/15/19 amLODIPine [Norvasc] 10 mg PO DAILY 07/18/19 Baclofen 5 mg PO TID 5 Days #15 tablet 10/21/21 Controlled Substance Measures - Controlled Substance Measures Is patient prescribed a controlled substance at discharge?: No
== END ==
LOC: PNWHC3 12:32
PROVIDERS: ATTEND Specialist
DX: M41.86 Other forms of scoliosis, lumbar region (principal); M19.90 Unspecified osteoarthritis, unspecified site; G90.50 Complex regional pain syndrome I, unspecified; I10 Essential (primary) hypertension; F17.200 Nicotine dependence, unspecified, uncomplicated; Z88.5 Allergy status to narcotic agent
CPT/HCPCS: 99211

== ENCOUNTER 2023-08-26 06:25 | Day surgery (SDC) | payer BC, MEDICARE ==
[~2023-08-26 06:25] MED LIST: LACTATED RINGERS 1,000 ML IV SCH
[2023-08-26 07:16] VITALS: RESP 16; TEMP 97.4
[2023-08-26] MEDS ORDERED: ROPIVACAINE 5MG/ML 20ML VIAL ONE (07:27)
--- NOTE | 2023-08-26 07:53 | P.PCN ---
Description of Procedure: Date of Procedure: 08/26/23 Surgeon: Sharon Ramos Pathology: none sent Condition: stable Disposition: PACU Description of Procedure: PROCEDURES: Right Stellate ganglion block with ultrasound guidance. PREOPERATIVE DIAGNOSIS: 1- RUE CRPS (type I) POSTOPERATIVE DIAGNOSIS: Same ANESTHESIA: Local only with 1% lidocaine EBL: None. COMPLICATIONS: None. INDICATION: The patient presents long history of signs and symptoms suggestive of CRPS of the right arm, presents today for right stellate ganglion block, #1 in this series. Patient has had inability to do physical therapy due to pain and presents for SGB today. No use of blood thinners. PROCEDURE DESCRIPTION: The patient was seen and identified in the preoperative area. Risks, benefits, complications, and alternatives were discussed with the patient, with risks including but not limited to hoarseness, local anesthetic toxicity, bleeding, infection, nerve damage, allergic reactions to medications, and incomplete pain relief. The patient agreed to proceed with the procedure and signed the informed consent after all questions were answered. IV was started and vital signs were stable. Patient was brought to the procedure room and placed in the supine position with a shoulder roll to improve extension of the neck. Cervical area anteriorly was prepped and draped in the usual sterile fashion with focus on the right side of the neck. Using a linear ultrasound probe and sterile cover, the thyroid gland and carotid artery were identified, as was the vertebral artery. The ultrasound was moved cephalad to identify the Chassaignac 's tubercle . signifying the C6 level. After localization with 2 ml of 1% lidocaine plain, a 25 gauge 3.5 inch quincke spinal needle was directed behind the carotid artery and anterior to the longus coli muscle. After negative aspiration for CSF or blood and in the absence of paresthesias, solution was injected incrementally with frequent aspiration anterior to the longus colli muscle. Block solution contained 6 mL of 0.25% Ropivacaine preservative free . Needle was removed intact, skin was cleansed, and bandages were applied. COMPLICATIONS: None. A copy of needle placement was saved to the ultrasound machine and printed out for the patient's records. The patient tolerated the procedure well without complications and had excellent pain relief immediately after the procedure, along with warmth in his right upper extremity. After re-examination, she was discharged home after the procedure after he met all discharge criteria. . She will go to physical therapy today and will be seen in the clinic in a few weeks.
[2023-08-26 08:29] VITALS: BP 115/78; PULSE 67
== END 2023-08-26 08:15 | disposition home or self-care (01) ==
LOC: ORPAIN 06:25
PROVIDERS: ATTEND Anesthesiology
DX: G90.511 Complex regional pain syndrome I of right upper limb (principal); I10 Essential (primary) hypertension
CPT/HCPCS: 64510; 76942; J2795

== ENCOUNTER → 2023-09-15 | Outpatient (CLI) | payer BC, MEDICARE ==
[2023-09-15 13:30] VITALS: BP 132/72; PULSE 82; RESP 14; TEMP 98.6
--- NOTE | 2023-09-15 16:08 | P.PAINPG ---
PQRS Measure Charge Sheet Comment: HISTORY OF PRESENT ILLNESS: 52 yr old female presents today w severe and chronic R wrist pain secondary to CRPS x 4 yrs due to R wrist surgery for evaluation s/p R Stellate ganglion block #1. Pt states she experienced 60% pain relief x 1 wks s/p procedure. Pt states pain level is provoked at 5/10 in intensity, constant, localized in the RUE, burning, stabbing in character w shooting pain towards the R shoulder. Pain is provoked by over activity. Pain is alleviated by PT semi weekly since February 2023 till current, medications, ice, repositioning and rest. Oswestry axial pain score at 20. Has not followed up w Community Development Coordinator and Functional Medicine physician for additional treatment options. Interventional procedures include R Stellate Ganglion Block x1 Medications include Neurontin, Tyl #3, Tyl Arthritis REVIEW OF ORGAN SYSTEMS: CONSTITUTIONAL: No fevers or chills. No recent weight loss. NEUROLOGICAL: + numbness and tingling along the distal extremities. No seizure disorders or headaches. MUSCULOSKELETAL: + pain PSYCHIATRIC: Denies current depression or suicidal thoughts. Physical Examinations : Constitutional : Cooperative , not in acute distress . Neurologic : Cranial nerve II to XII intact. No focal neurological deficits. Psychiatric : alert & oriented x 3. Matching mood & appropriate affect. Judgment & insight intact. Musculoskeletal : R Tinel Sign, R Phalen Sign Cervical Spine Motor strength in the deltoid and biceps: Normal right side. Normal Left side Motor strength biceps and the wrist extensors: Normal right side . Normal left side Motor strength in the triceps muscle: Normal right side. Normal left side Deep tendon reflexes: Normal at the biceps. Normal at Brachioradialis. Normal at triceps Vertebral body tenderness to deep palpation over Cervical facet loading test: positive bilaterally Spurling test: positive bilaterally Neck distraction test: positive bilaterally Alix sign: positive bilaterally Lumbar spine Motor strength lower extremities ,thigh and legs 5/5 Right side , 5/5 Left side Deep tendon reflexes : Normal Knee Jerk. Normal Ankle Jerk Vertebral body tenderness over Torres Test positive Lumbar facet Loading Test: positive Right / positive Left Range of motion of the lumbar spine Flexion 30 degrees, extension 10 degrees Straight Leg Raise test: Left/ Right positive at degree Dave test: positive right / positive left. Severe tenderness over the Sacroiliac joint on the Right / Left sides Gaenslen test: positive bilaterally Seated flexion test: positive bilaterally. Sacral spine : Severe tenderness over the Sacroiliac joint: right side / left side Range of motion: Flexion of the lumbar spine <60 degrees Range of motion: Extension of the lumbar spine <20 degrees Gaenslen's Test positive Reginald's Test positive Dave test: positive right side / left side Thigh Thrust Test Sacral Thrust Test Imaging: MRI noncontrast of the lumbar spine from 04/12/[address] non contrast of the head and cervical spine from 10/21/21 reviewed Assessment/ Plan : Lumbar levoconvex scoliosis Recommendation of medication management. Tyl #3 #60 w 1 RF. Use, side effects, adverse reactions and safe storage discussed. Opiate/ narcotic agreement signed 09/15/23 Pt acknowledged understanding. All questions answered. I have spent greater than 30 minutes on patient care today. Dr Maldonado was available by phone for the evaluation of this patient. The time was used to review the medical records including relevant urine studies and Prescription history (MAPs), review of the available imaging, evaluation and examination of the patient, coordination of care with the medical staff and if applicable referring physicians, as well as creation of the medical record PQRS Narrative: Smoking Status Current every day smoker Hx Alcohol Use (MH) No Home Medications: Ambulatory Orders amLODIPine [Norvasc] 5 mg PO 1700 07/18/19 Acetaminophen-Codeine 300-30mg [Tylenol w/codeine #3] 1 tab PO BID PRN 08/23/23 Cholecalciferol (Vitamin D3) [Vitamin D3 (3000 Iu)] 75 mcg PO QAM 08/23/23 Gabapentin 300 mg PO HS 08/23/23 Gabapentin [Neurontin] 100 mg PO DIRECTED 08/23/23 Loratadine [Claritin] 10 mg PO HS PRN 08/23/23 Multivit with Calcium,Iron,Min [Women's Multivitamin] 1 each PO QAM 08/23/23 Controlled Substance Measures - Controlled Substance Measures Is patient prescribed a controlled substance at discharge?: Yes When asked, does pt state using other controlled substances?: No If prescribed controlled substance>3 days was MAPS reviewed?: Yes If Rx opioid, was Start Talking consent form obtained?: Yes Was information provided regarding opioid addiction?: Yes
== END ==
LOC: PNWHC3 12:40
PROVIDERS: ATTEND Specialist
DX: M71.331 Other bursal cyst, right wrist (principal); M41.86 Other forms of scoliosis, lumbar region; F17.200 Nicotine dependence, unspecified, uncomplicated; Z88.8 Allergy status to other drugs, medicaments and biological substances
CPT/HCPCS: 99211

== ENCOUNTER → 2023-11-10 | Outpatient (CLI) | payer BC, MEDICARE ==
[2023-11-10 08:55] VITALS: BP 132/88; PULSE 87; RESP 16; TEMP 98.3
--- NOTE | 2023-11-10 14:07 | P.PAINPG ---
PQRS Measure Charge Sheet Comment: A 52 yr old female presents today w severe and chronic R wrist pain and LBP secondary to CRPS x 4 yrs due to R wrist surgery, DDD, spondylosis and facet arthropathy without myelopathy for medication refills. Pt states pain level is provoked at 5/10 in intensity, constant, localized in the lumbar spine, predo minantly axial, burning, stabbing in character w occasional shooting pain towards the L foot. Pain is provoked by over activity. Pain is alleviated by PT semi weekly since February 2023 (cervical) till current, PT semi weekly x 6 mo which ended in Sep 2023 (lumbar), medications, ice, repositioning and rest. Oswestry axial pain score of 20. Has not followed up w Senior Sales Consultant and Functional Medicine physician for additional treatment options. Interventional procedures include R Stellate Ganglion Block x1 Medications include Neurontin, Tyl #3, Tyl Arthritis REVIEW OF ORGAN SYSTEMS: CONSTITUTIONAL: No fevers or chills. No recent weight loss. NEUROLOGICAL: + numbness and tingling along the distal extremities. No seizure disorders or headaches. MUSCULOSKELETAL: + pain PSYCHIATRIC: Denies current depression or suicidal thoughts. Physical Examinations : Constitutional : Cooperative , not in acute distress . Neurologic : Cranial nerve II to XII intact. No focal neurological deficits. Psychiatric : alert & oriented x 3. Matching mood & appropriate affect. Judgment & insight intact. Musculoskeletal : R Tinel Sign, R Phalen Sign Cervical Spine Motor strength in the deltoid and bicep s: Normal right side. Normal Left side Motor strength biceps and the wrist extensors: Normal right side . Normal left side Motor strength in the triceps muscle: Normal right side. Normal left side Deep tendon reflexes: Normal at the biceps. Normal at Brachioradialis. Normal at triceps Vertebral body tenderness to deep palpation over Cervical facet loading test: positive bilaterally Spurling test: positive bilaterally Neck distraction test: positive bilaterally Alix sign: positive bilaterally Lumbar spine Motor strength lower extremities ,thigh and legs 5/5 Right side , 5/5 Left side Deep tendon reflexes : Normal Knee Jerk. Normal Ankle Jerk Vertebral body tenderness over Torres Test positive Lumbar facet Loading Test: positive Right / positive Left Range of motion of the lumbar spine Flexion 30 degrees, extension 10 degrees Straight Leg Raise test: Left/ Right positive at degree Dave test: positive right / positive left. Severe tenderness over the Sacroiliac joint on the Right / Left sides Jenny test: positive bilaterally Seated flexion test: positive bilaterally. Sacral spine : Severe tenderness over the Sacroiliac joint: right side / left side Range of motion: Flexion of the lumbar spine <60 degrees Range of motion: Extension of the lumbar spine <20 degrees Gaenslen's Test positive Reginald's Test positive Dave test: positive right side / left side Thigh Thrust Test Sacral Thrust Test Imaging: MRI noncontrast of the lumbar spine from 04/12/[address] non contrast of the head and cervical spine from 10/21/21 reviewed Assessment/ Plan : Lumbar levoconvex scoliosis Recommendation of repeat R Stellate Ganglion block #2 and medication management. Tyl #3 #60 w 1 RF. Use, side effects, adverse reactions and safe storage discussed. Opiate/ narcotic agreement signed 09/15/23. UDS collected 11/10/23. May need a series of injections for optimal pain relief. Risks, benefits of procedure discussed and patient verbalized understanding. Protocol for discontinuation/continuation of medications surrounding procedure discussed. Pt acknowledged understanding. All questions answered. I have spent greater than 30 minutes on patient care today. Dr Maldonado was available by phone for the evaluation of this patient. The time was used to review the medical records including relevant urine studies and Prescription his tory (MAPs), review of the available imaging, evaluation and examination of the patient, coordination of care with the medical staff and if applicable referring physicians, as well as creation of the medical record PQRS Narrative: Smoking Status Current every day smoker Hx Alcohol Use (MH) No Home Medications: Ambulatory Orders amLODIPine [Norvasc] 5 mg PO 1700 07/18/19 Cholecalciferol (Vitamin D3) [Vitamin D3 (3000 Iu)] 75 mcg PO QAM 08/23/23 Gabapentin 300 mg PO HS 08/23/23 Gabapentin [Neurontin] 100 mg PO DIRECTED 08/23/23 Loratadine [Claritin] 10 mg PO HS PRN 08/23/23 Multivit with Calcium,Iron,Min [Women's Multivitamin] 1 each PO QAM 08/23/23 Acetaminophen-Codeine 300-30mg [Tylenol w/codeine #3] 1 tab PO BID PRN 30 Days #60 tab 09/15/23 Controlled Substance Measures - Controlled Substance Measures Is patient prescribed a controlled substance at discharge?: Yes When asked, does pt state using other controlled substances?: No If prescribed controlled substance>3 days was MAPS reviewed?: Yes
== END ==
LOC: PNWHC3 07:14
PROVIDERS: ATTEND Specialist
DX: M41.86 Other forms of scoliosis, lumbar region (principal); F17.200 Nicotine dependence, unspecified, uncomplicated; Z51.81 Encounter for therapeutic drug level monitoring; Z88.8 Allergy status to other drugs, medicaments and biological substances
CPT/HCPCS: 80307; 99211; 99212

== ENCOUNTER 2024-01-04 08:33 | Day surgery (SDC) | payer BC, MEDICARE ==
[2024-01-03 08:34] VITALS: BMI 23.2
[2024-01-04] MEDS: LACTATED RINGERS 1,000 ML IV SCH (09:00)
[2024-01-04 09:16] VITALS: TEMP 97.5
[2024-01-04] MEDS ORDERED: DEXAMETHASONE SOD PHOSPHATE 10 MG/ML 1 ML VIAL ONE (09:28)
[2024-01-04] MEDS ORDERED: ROPIVACAINE 5MG/ML 20ML VIAL ONE (09:28)
--- NOTE | 2024-01-04 09:38 | P.PCN ---
Date of Procedure: 01/04/24 Procedure(s) Performed: PROCEDURES: Right Stellate ganglion block with ultrasound guidance. PREOPERATIVE DIAGNOSIS: 1- RUE CRPS (type I) POSTOPERATIVE DIAGNOSIS: Same ANESTHESIA: Local only with 1% lidocaine EBL: None. COMPLICATIONS: None. INDICATION: The patient presents long history of signs and symptoms suggestive of CRPS of the right arm, presents today for right stellate ganglion block, #1 in this series. Patient has had inability to do physical therapy due to pain and presents for SGB today. No use of blood thinners. PROCEDURE DESCRIPTION: The patient was seen and identified in the preoperative area. Risks, benefits, complications, and alternatives were discussed with the patient, with risks including but not limited to hoarseness, local anesthetic toxicity, bleeding, infection, nerve damage, allergic reactions to medications, and incomplete pain relief. The patient agreed to proceed with the procedure and signed the informed consent after all questions were answered. IV was started and vital signs were stable. Patient was brought to the procedure room and placed in the supine position with a shoulder roll to improve extension of the neck. Cervical area anteriorly was prepped and draped in the usual sterile fashion with focus on the right side of the neck. Using a linear ultrasound probe and sterile cover, the thyroid gland and carotid artery were identified, as was the vertebral artery. The ultrasound was moved cephalad to identify the Chass [place]ignac's tubercle . signifying the C6 level. After localization with 2 ml of 1% lidocaine plain, a 21 gauge 2 inch quincke Pujung needle was directed behind the carotid artery and anterior to the longus coli muscle. After negative aspiration for CSF or blood and in the absence of paresthesias, solution was injected incrementally with frequent aspiration anterior to the longus colli muscle. Block solution contained 8 mL of 0.25% Ropivacaine preservative free mixed with 20 mg Dexamethasone . Needle was removed intact, skin was cleansed, and bandages were applied. COMPLICATIONS: None. A copy of needle placement was saved to the ultrasound machine and printed out for the patient's records. The patient tolerated the procedure well without complications and had excellent pain relief immediately after the procedure, along with warmth in his right upper extremity. After re-examination, she was discharged home after the procedure after he met all discharge criteria. . She will go to physical therapy today and will be seen in the clinic in a few weeks.
[2024-01-04] MEDS: IV FLUID CONTINUATION 600 ML IV ONE (09:42)
[2024-01-04 10:36] VITALS: BP 134/91; PULSE 77; RESP 20
== END 2024-01-04 10:13 | disposition home or self-care (01) ==
LOC: ORPAIN 08:33
PROVIDERS: ATTEND Specialist
DX: G90.50 Complex regional pain syndrome I, unspecified (principal); Z88.5 Allergy status to narcotic agent; Z90.710 Acquired absence of both cervix and uterus
CPT/HCPCS: 64510; J1100; J2795

== ENCOUNTER → 2024-01-05 | Outpatient (CLI) | payer BC, MEDICARE ==
[2024-01-05 09:06] VITALS: BP 96/64; PULSE 74; RESP 15; TEMP 97.5
--- NOTE | 2024-01-05 14:26 | P.PAINPG ---
PQRS Measure Charge Sheet Comment: A 52 yr old female presents today w severe and chronic R wrist pain and LBP secondary to CRPS x 4 yrs due to R wrist surgery, DDD, spondylosis and facet arthropathy without myelopathy for medication refills. Had Stellate Ganglion Nerve Block 1 day ago. Pt states pain level is provoked at 5/10 in intensity, c onstant, localized in the lumbar spine, predominantly axial, burning, stabbing in character w occasional shooting pain towards the L foot. Pain is provoked by over activity. Pain is alleviated by PT semi weekly since February 2023 (cervical) till current, PT semi weekly x 6 mo which ended in Sep 2023 (lumbar), medications, ice, repositioning and rest. Oswestry axial pain score of 20. UDS NEG for Opiates from 11/10/23 so will repeat UDS 01/05/24. Has not followed up w Lathe Machine Operator and Functional Medicine physician for additional treatment options. Interventional procedures include R Stellate Ganglion Block x1 Medications include Neurontin, Tyl #3, Tyl Arthritis REVIEW OF ORGAN SYSTEMS: CONSTITUTIONAL: No fevers or chills. No recent weight loss. NEUROLOGICAL: + numbness and tingling along the distal extremities. No seizure disorders or headaches. MUSCULOSKELETAL: + pain PSYCHIATRIC: Denies current depression or suicidal thoughts. Physical Examinations : Constitutional : Cooperative , not in acute distress . Neurologic : Cranial nerve II to XII intact. No focal neurological deficits. Psychiatric : alert & oriented x 3. Matching mood & appropriate affect. Judgment & insight intact. Musculoskeletal : R Tinel Sign, R Phalen Sign Cervical Spine Motor strength in the deltoid and biceps: Normal right side. Normal Left side Motor strength biceps and the wrist extensors: Normal right side . Normal left side Motor strength in the triceps muscle: Normal right side. Normal left side Deep tendon reflexes: Normal at the biceps. Normal at Brachioradialis. Normal at triceps Vertebral body tenderness to deep palpation over Cervical facet loading test: positive bilaterally Spurling test: positive bilaterally Neck distraction test: positive bilaterally Alix sign: positive bilaterally Lumbar spine Motor strength lower extremities ,thigh and legs 5/5 Right side , 5/5 Left side Deep tendon reflexes : Normal Knee Jerk. Normal Ankle Jerk Vertebral body tenderness over Torres Test positive Lumbar facet Loading Test: positive Right / positive Left Range of motion of the lumbar spine Flexion 30 degrees, extension 10 degrees Straight Leg Raise test: Left/ Right positive at degree Dave test: positive right / positive left. Severe tenderness over the Sacroiliac joint on the Right / Left sides Gaenslen test: positive bilaterally Seated flexion test: positive bilaterally. Sacral spine : Severe tenderness over the Sacroiliac joint: right side / left side Range of motion: Flexion of the lumbar spine <60 degrees Range of motion: Extension of the lumbar spine <20 degrees Gaenslen's Test positive Reginald's Test positive Dave test: positive right side / left side Thigh Thrust Test Sacral Thrust Test Imaging: MRI noncontrast of the lumbar spine from 04/12/[address] non contrast of the head and cervical spine from 10/21/21 reviewed Assessment/ Plan : Lumbar levoconvex scoliosis Recommendation of medication management. Tyl #3 #60 and Neurontin 100mg #300 NR. Use, side effects, adverse reactions and safe storage discussed. Opiate/ narcotic agreement signed 09/15/23. UDS fr 11/10/23 reviewed and inconsistent (NEG for Codeine) Repeat UDS 01/05/24. May need a series of injections for optimal pain relief. Risks, benefits of procedure discussed and patient verbalized understanding. Protocol for discontinuation/continuation of medications surrounding procedure discussed. Pt acknowledged understanding. All questions answered. I have spent greater than 30 minutes on patient care today. Dr Maldonado was available by phone for the evaluation of this patient. The time was used to review the medical records including relevant urine studies and Prescription history (MAPs), review of the available imaging, evaluation and examination of the patient, coordination of care with the medical staff and if applicable referring physicians, as well as creation of the medical record PQRS Narrative: Smoking Status Current every day smoker Hx Alcohol Use (MH) No Home Medications: Ambulatory Orders amLODIPine [Norvasc] 5 mg PO 1700 07/18/19 Cholecalciferol (Vitamin D3) [Vitamin D3 (3000 Iu)] 75 mcg PO QAM 08/23/23 Gabapentin [Neurontin] 100 mg PO DIRECTED 08/23/23 Loratadine [Claritin] 10 mg PO HS PRN 08/23/23 Multivit with Calcium,Iron,Min [Women's Multivitamin] 1 each PO QAM 08/23/23 Acetaminophen [Tylenol Arthritis] 1,300 mg PO Q8H PRN 01/03/24 Acetaminophen-Codeine 300-30mg [Tylenol w/codeine #3] 1 tab PO BID PRN 30 Days #60 tab 01/05/24 Gabapentin 300 mg PO HS 30 Days #30 cap 01/05/24 Controlled Substance Measures - Controlled Substance Measures Is patient prescribed a controlled substance at discharge?: Yes When asked, does pt state using other controlled substances?: No If prescribed controlled substance>3 days was MAPS reviewed?: Yes
== END ==
LOC: PNWHC3 07:38
PROVIDERS: ATTEND Specialist
DX: M41.86 Other forms of scoliosis, lumbar region (principal); F17.200 Nicotine dependence, unspecified, uncomplicated; Z88.8 Allergy status to other drugs, medicaments and biological substances
CPT/HCPCS: 80307; 99212

== ENCOUNTER 2024-01-20 07:55 | Day surgery (SDC) | payer BC, MEDICARE ==
[2024-01-20] MEDS: LACTATED RINGERS 1,000 ML IV SCH (08:47)
[2024-01-20 08:54] VITALS: RESP 16; TEMP 97.5
[2024-01-20] MEDS ORDERED: DEXAMETHASONE SOD PHOSPHATE 10 MG/ML 1 ML VIAL ONE (09:38)
[2024-01-20] MEDS ORDERED: ROPIVACAINE 5MG/ML 20ML VIAL ONE (09:38)
--- NOTE | 2024-01-20 10:05 | P.PCN ---
Description of Procedure: PROCEDURES: Right Stellate ganglion block with ultrasound guidance. PREOPERATIVE DIAGNOSIS: 1- RUE CRPS (type I) POSTOPERATIVE DIAGNOSIS: Same ANESTHESIA: Local only with 1% lidocaine EBL: None. COMPLICATIONS: None. INDICATION: The patient presents long history of signs and symptoms suggestive of CRPS of the right arm, presents today for right stellate ganglion block, #1 in this series. Patient has had inability to do physical therapy due to pain and presents for SGB today. No use of blood thinners. PROCEDURE DESCRIPTION: The patient was seen and identified in the preoperative area. Risks, benefits, complications, and alternatives were discussed with the patient, with risks including but not limited to hoarseness, local anesthetic toxicity, bleeding, infection, nerve damage, allergic reactions to medications, and incomplete pain relief. The patient agreed to proceed with the procedure and signed the informed consent after all questions were answered. IV was started and vital signs were stable. Patient was brought to the procedure room and placed in the supine position with a shoulder roll to improve extension of the neck. Cervical area anteriorly was prepped and draped in the usual sterile fashion with focus on the right side of the neck. Using a linear ultrasound probe and sterile cover, the thyroid gland and carotid artery were identified, as was the vertebral artery. The ultrasound was moved cephalad to identify the Chassaignac's tubercle . signifying the C6 level. After localization with 2 ml of 1% lidocaine plain, a 21 gauge 2 inch quincke Pujung needle was directed behind the carotid artery and anterior to the longus coli muscle. After negative aspiration for CSF or blood and in the absence of paresthesias, solution was injected incrementally with frequent aspiration anterior to the longus colli muscle. Block solution contained 8 mL of 0.25% Ropivacaine preservative free mixed with 20 mg Dexamethasone . Needle was removed intact, skin was cleansed, and bandages were applied. COMPLICATIONS: None. A copy of needle placement was saved to the ultrasound machine and printed out for the patient's records. The patient tolerated the procedure well without complications and had excellent pain relief immediately after the procedure, along with warmth in his right upper extremity. After re-examination, she was discharged home after the procedure after he met all discharge criteria. . She will go to physical therapy today and will be seen in the clinic in a few weeks.
[2024-01-20] MEDS: LACTATED RINGERS 1,000 ML IV ONE (10:06)
[2024-01-20 11:04] VITALS: BP 136/87; PULSE 83
== END 2024-01-20 10:53 | disposition home or self-care (01) ==
LOC: ORPAIN 07:55
PROVIDERS: ATTEND Pain Medicine Interventional Pain Medicine
DX: G90.50 Complex regional pain syndrome I, unspecified (principal); Z88.8 Allergy status to other drugs, medicaments and biological substances
CPT/HCPCS: 64510; J1100; J2795

== ENCOUNTER → 2024-03-01 | Outpatient (CLI) | payer BC, MEDICARE ==
[2024-03-01 08:44] VITALS: BP 132/62; PULSE 75; RESP 15; TEMP 98.6
--- NOTE | 2024-03-01 13:47 | P.PAINPG ---
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 Pt states she experienced 75 % pain relief x 3-4 wks s/p procedure. Pt states pain level is provoked at 5 /10 in intensity, constant, localized in the lumbar spine, predominantly axial, burning, stabbing in character w occasional shooting pain towards the L foot. Pain is provoked by over activity. Pain is alleviated by PT semi weekly since February 2023 (cervical) till current, PT semi weekly x 6 mo which ended in Sep 2023 (lumbar), medications, ice, repositioning and rest. Oswestry axial pain score of 17. Has not followed up w [facility] and Functional Medicine physician for additional treatment options. Interventional procedures include R Stellate Ganglion Block x1 Medications include Neurontin, Tyl #3, Tyl Arthritis REVIEW OF ORGAN SYSTEMS: CONSTITUTIONAL: No fevers or chills. No recent weight loss. NEUROLOGICAL: + numbness and tingling along the distal extremities. No seizure disorders or headaches. MUSCULOSKELETAL: + pain PSYCHIATRIC: Denies current depression or suicidal thoughts. Physical Examinations : Constitutional : Cooperative , not in acute distress . Neurologic : Cranial nerve II to XII intact. No focal neurological deficits. Psychiatric : alert & oriented x 3. Matching mood & appropriate affect. Judgment & insight intact. Musculoskeletal : R Tinel Sign, R Phalen Sign Cervical Spine Motor strength in the deltoid and biceps: Normal right side. Normal Left side Motor strength biceps and the wrist extensors: Normal right side . Normal left side Motor strength in the triceps muscle: Normal right side. Normal left side Deep tendon reflexes: Normal at the biceps. Normal at Brachioradialis. Normal at triceps Vertebral body tenderness to deep palpation over Cervical facet loading test: positive bilaterally Spurling test: positive bilaterally Neck distraction test: positive bilaterally Alix sign: positive bilaterally Lumbar spine Motor strength lower extremities ,thigh and legs 5/5 Right side , 5/5 Left side Deep tendon reflexes : Normal Knee Jerk. Normal Ankle Jerk Vertebral body tenderness over Torres Test positive Lumbar facet Loading Test: positive Right / positive Left Range of motion of the lumbar spine Flexion 30 degrees, extension 10 degrees Straight Leg Raise test: Left/ Right positive at degree Dave test: positive right / positive left. Severe tenderness over the Sacroiliac joint on the Right / Left sides Gaenslen test: positive bilaterally Seated flexion test: positive bilaterally. Sacral spine : Severe tenderness over the Sacroiliac joint: right side / left side Range of motion: Flexion of the lumbar spine <60 degrees Range of motion: Extension of the lumbar spine <20 degrees Gaenslen's Test positive Reginald's Test positive Dave test: positive right side / left side Thigh Thrust Test Sacral Thrust Test Imaging: MRI noncontrast of the lumbar spine from 04/12/[address] non contrast of the head and cervical spine from 10/21/21 reviewed Assessment/ Plan : Lumbar levoconvex scoliosis Recommendation of medication management. Tyl #3 #30, Neurontin 100mg QAM #30 and Neurontin QHS 300mg #3 w 1 RF. Use, side effects, adverse reactions and safe storage discussed. Opiate/ narcotic agreement signed 09/15/23. UDS fr 01/05/24 reviewed and +Gabapentin. Pt acknowledged understanding. All questions answered. I have spent greater than 30 minutes on patient care today. Dr Maldonado was available by phone for the evaluation of this patient. The time was used to review the medical records including relevant urine studies and Prescription history (MAPs), review of the available imaging, evaluation and examination of the patient, coordination of care with the medical staff and if applicable referring physicians, as well as creation of the medical record PQRS Narrative: Smoking Status Current every day smoker Hx Alcohol Use (MH) No Home Medications: Ambulatory Orders amLODIPine [Norvasc] 5 mg PO 1700 07/18/19 Cholecalciferol (Vitamin D3) [Vitamin D3 (3000 Iu)] 75 mcg PO QAM 08/23/23 Loratadine [Claritin] 10 mg PO HS PRN 08/23/23 Multivit with Calcium,Iron,Min [Women's Multivitamin] 1 each PO QAM 08/23/23 Acetaminophen [Tylenol Arthritis] 1,300 mg PO Q8H PRN 01/03/24 Gabapentin [Neurontin] 300 mg PO HS 30 Days #30 cap 01/20/24 Acetaminophen-Codeine 300-30mg [Tylenol w/codeine #3] 1 tab PO DAILY PRN 30 Days #30 tablet 04/10/24 Gabapentin [Neurontin] 100 mg PO DAILY 30 Days #30 cap 03/01/24 Controlled Substance Measures - Controlled Substance Measures Is patient prescribed a controlled substance at discharge?: Yes When asked, does pt state using other controlled substances?: No If prescribed controlled substance>3 days was MAPS reviewed?: Yes
== END ==
LOC: PNWHC3 07:32
PROVIDERS: ATTEND Specialist
DX: M41.86 Other forms of scoliosis, lumbar region (principal); M71.38 Other bursal cyst, other site; F17.200 Nicotine dependence, unspecified, uncomplicated; Z88.5 Allergy status to narcotic agent
CPT/HCPCS: 80307; 99211

== ENCOUNTER → 2024-04-26 | Outpatient (CLI) | payer BC, MEDICARE ==
[2024-04-26 08:20] VITALS: BP 122/84; PULSE 87; RESP 16
--- NOTE | 2024-04-26 15:12 | P.PAINPG ---
PQRS Measure Charge Sheet Comment: A 53 yr old female presents today w severe and chronic R wrist pain and LBP secondary to CRPS x 4 yrs due to R wrist surgery, DDD, spondylosis and facet arthropathy without myelopathy for medication refills . Pt states pain level is provoked at 9 /10 in intensity, constant, localized in the R wrist, sharp in character w occasional shooting pain towards the RUE. Pain is provoked by over activity. Pain is alleviated by PT semi weekly since February 2023 (cervical) till current, PT semi weekly x 6 mo which ended in Sep 2023 (lumbar), medications, ice, repositioning and rest. Oswestry axial pain score of 17. Has not followed up w [facility] and Functional Medicine physician for additional treatment options. Interventional procedures include R Stellate Ganglion Block x1 Medications include Neurontin, Tyl #3, Tyl Arthritis REVIEW OF ORGAN SYSTEMS: CONSTITUTIONAL: No fevers or chills. No recent weight loss. NEUROLOGICAL: + numbness and tingling along the distal extremities. No seizure disorders or headaches. MUSCULOSKELETAL: + pain PSYCHIATRIC: Denies current depression or suicidal thoughts. Physical Examinations : Constitutional : Cooperative , not in acute distress . Neurologic : Cranial nerve II to XII intact. No focal neurological deficits. Psychiatric : alert & oriented x 3. Matching mood & appropriate affect. Judgment & insight intact. Musculoskeletal : R Tinel Sign, R Phalen Sign Cervical Spine Motor strength in the deltoid and biceps: Normal right side. Normal Left side Motor strength biceps and the wrist extensors: Normal right side . Normal left side Motor strength in the triceps muscle: Normal right side. Normal left side Deep tendon reflexes: Normal at the biceps. Normal at Brachioradialis. Normal at triceps Vertebral body tenderness to deep palpation over Cervical facet loading test: positive bilaterally Spurling test: positive bilaterally Neck distraction test: positive bilaterally Alix sign: positive bilaterally Lumbar spine Motor strength lower extremities ,thigh and legs 5/5 Right side , 5/5 Left side Deep tendon reflexes : Normal Knee Jerk. Normal Ankle Jerk Vertebral body tenderness over Torres Test positive Lumbar facet Loading Test: positive Right / positive Left Range of motion of the lumbar spine Flexion 30 degrees, extension 10 degrees Straight Leg Raise test: Left/ Right positive at degree Dave test: positive right / positive left. Severe tenderness over the Sacroiliac joint on the Right / Left sides Gaenslen test: positive bilaterally Seated flexion test: positive bilaterally. Sacral spine : Severe tenderness over the Sacroiliac joint: right side / left side Range of motion: Flexion of the lumbar spine <60 degrees Range of motion: Extension of the lumbar spine <20 degrees Gaenslen's Test positive Reginald's Test positive Dave test: positive right side / left side Thigh Thrust Test Sacral Thrust Test Imaging: MRI noncontrast of the lumbar spine from 04/12/[address] non contrast of the head and cervical spine from 10/21/21 reviewed Assessment/ Plan : Lumbar levoconvex scoliosis Recommendation of medication management. Tyl #3 #30, Neurontin 100mg QAM #30 and Neurontin QHS 300mg #3 w 1 RF. Use, side effects, adverse reactions and safe storage discussed. Opiate/ narcotic agreement signed 09/15/23. UDS fr 03/01/24 reviewed and consistent. Pt acknowledged understanding. All questions answered. I have spent greater than 30 minutes on patient care today. Dr Maldonado was available by phone for the evaluation of this patient. The time was used to review the medical records including relevant urine studies and Prescription history (MAPs), review of the available imaging, evaluation and examination of the patient, coordination of care with the medical staff and if applicable referring physicians, as well as creation of the medical record PQRS Narrative: Smoking Status Current every day smoker Hx Alcohol Use (MH) No Home Medications: Ambulatory Orders amLODIPine [Norvasc] 5 mg PO 1700 07/18/19 Cholecalciferol (Vitamin D3) [Vitamin D3 (3000 Iu)] 75 mcg PO QAM 08/23/23 Loratadine [Claritin] 10 mg PO HS PRN 08/23/23 Multivit with Calcium,Iron,Min [Women's Multivitamin] 1 each PO QAM 08/23/23 Acetaminophen [Tylenol Arthritis] 1,300 mg PO Q8H PRN 01/03/24 Acetaminophen-Codeine 300-30mg [Tylenol w/codeine #3] 1 tab PO DAILY PRN 30 Days #30 tablet 04/26/24 Gabapentin [Neurontin] 100 mg PO DAILY 30 Days #30 cap 04/26/24 Gabapentin [Neurontin] 300 mg PO HS 30 Days #30 cap 04/26/24 Controlled Substance Measures - Controlled Substance Measures Is patient prescribed a controlled substance at discharge?: Yes When asked, does pt state using other controlled substances?: No If prescribed controlled substance>3 days was MAPS reviewed?: Yes
== END ==
LOC: PNWHC3 07:35
PROVIDERS: ATTEND Specialist
DX: M41.86 Other forms of scoliosis, lumbar region (principal); F17.200 Nicotine dependence, unspecified, uncomplicated; Z88.8 Allergy status to other drugs, medicaments and biological substances
CPT/HCPCS: 99211

== ENCOUNTER → 2024-06-19 | Outpatient (CLI) | payer BC, MEDICARE ==
[2024-06-19 08:03] VITALS: BP 127/85; PULSE 80; RESP 16; TEMP 98.5
--- NOTE | 2024-06-19 14:26 | P.PAINPG ---
PQRS Measure Charge Sheet Comment: A 53 yr old female presents today w severe and chronic R wrist pain and LBP secondary to CRPS x 4 yrs due to R wrist surgery, DDD, spondylosis and facet arthropathy without myelopathy for medication refills . Pt states pain level is provoked at 5 /10 in intensity, constant, localized in the BL feet, tingly in character without shooting pain. Pain is provoked by over activity. Pain is alleviated by PT semi weekly since February 2023 (cervical) till current, PT semi weekly x 6 mo which ended in Sep 2023 (lumbar), medications, ice, repositioning and rest. Oswestry axial pain score of 17. Has not followed up w [facility] [employer] and Functional Medicine physician for additional treatment options. Interventional procedures include R Stellate Ganglion Block x1 Medications include Neurontin, Tyl #3, Tyl Arthritis REVIEW OF ORGAN SYSTEMS: CONSTITUTIONAL: No fevers or chills. No recent weight loss. NEUROLOGICAL: + numbness and tingling along the distal extremities. No seizure disorders or headaches. MUSCULOSKELETAL: + pain PSYCHIATRIC: Denies current depression or suicidal thoughts. Physical Examinations : Constitutional : Cooperative , not in acute distress . Neurologic : Cranial nerve II to XII intact. No focal neurological deficits. Psychiatric : alert & oriented x 3. Matching mood & appropriate affect. Judgment & insight intact. Musculoskeletal : R Tinel Sign, R Phalen Sign Cervical Spine Motor strength in the deltoid and biceps: Normal right side. Normal Left side Motor strength biceps and the wrist extensors: Normal right side . Normal left side Motor strength in the triceps muscle: Normal right side. Normal left side Deep tendon reflexes: Normal at the biceps. Normal at Brachioradialis. Normal at triceps Vertebral body tenderness to deep palpation over Cervical facet loading test: positive bilaterally Spurling test: positive bilaterally Neck distraction test: positive bilaterally Alix sign: positive bilaterally Lumbar spine Motor strength lower extremities ,thigh and legs 5/5 Right side , 5/5 Left side Deep tendon reflexes : Normal Knee Jerk. Normal Ankle Jerk Vertebral body tenderness over Torres Test positive Lumbar facet Loading Test: positive Right / positive Left Range of motion of the lumbar spine Fl exion 30 degrees, extension 10 degrees Straight Leg Raise test: Left/ Right positive at degree Dave test: positive right / positive left. Severe tenderness over the Sacroiliac joint on the Right / Left sides Gaenslen test: positive bilaterally Seated flexion test: positive bilaterally. Sacral spine : Poor 2pt discrimin in BL planta pedia Severe tenderness over the Sacroiliac joint: right side / left side Range of motion: Flexion of the lumbar spine <60 degrees Range of motion: Extension of the lumbar spine <20 degrees Gaenslen's Test positive Reginald's Test positive Dave test: positive right side / left side Thigh Thrust Test Sacral Thrust Test Imaging: MRI noncontrast of the lumbar spine from 04/12/[address] non contrast of the head and cervical spine from 10/21/21 reviewed Assessment/ Plan : Lumbar levoconvex scoliosis Recommendation of medication management. Tyl #3 #30, Neurontin 100mg QAM #30 and Neurontin QHS 300mg #30 w 2 RF. Use, side effects, adverse reactions and safe storage discussed. Opiate/ narcotic agreement signed 09/15/23. UDS fr 03/01/24 reviewed and consistent. Pt acknowledged understanding. All questions answered. I have spent greater than 30 minutes on patient care today. Dr Maldonado was available by phone for the evaluation of this patient. The time was used to review the medical records including relevant urine studies and Prescription history (MAPs), review of the available imaging, evaluation and examination of the patient, coordination of care with the medical staff and if applicable referring physicians, as well as creation of the medical record - Pain Location Bilateral Foot Pharmacological Interventions: Medication, PRN Medication PQRS Narrative: Smoking Status Current every day smoker Hx Alcohol Use (MH) No Home Medications: Ambulatory Orders amLODIPine [Norvasc] 5 mg PO 1700 07/18/19 Cholecalciferol (Vitamin D3) [Vitamin D3 (3000 Iu)] 75 mcg PO QAM 08/23/23 Loratadine [Claritin] 10 mg PO HS PRN 08/23/23 Multivit with Calcium,Iron,Min [Women's Multivitamin] 1 each PO QAM 08/23/23 Acetaminophen [Tylenol Arthritis] 1,300 mg PO Q8H PRN 01/03/24 Acetaminophen-Codeine 300-30mg [Tylenol w/codeine #3] 1 tab PO DAILY PRN 30 Days #30 tablet 06/19/24 Acetaminophen-Codeine 300-30mg [Tylenol w/codeine #3] 1 tab PO DAILY PRN 30 Days #30 tablet 06/19/24 Gabapentin [Gabapentin ER] 300 mg PO HS 30 Days #30 tab 06/19/24 Gabapentin [Neurontin] 100 mg PO DAILY 30 Days #30 cap 06/19/24 Gabapentin [Neurontin] 100 mg PO DAILY 30 Days #30 cap 06/19/24 Gabapentin [Neurontin] 300 mg PO HS 30 Days #30 cap 06/19/24 Controlled Substance Measures - Controlled Substance Measures Is patient prescribed a controlled substance at discharge?: Yes When asked, does pt state using other controlled substances?: No If prescribed controlled substance>3 days was MAPS reviewed?: Yes
== END ==
LOC: PNWHC3 07:30
PROVIDERS: ATTEND Specialist
DX: G90.50 Complex regional pain syndrome I, unspecified (principal); M41.86 Other forms of scoliosis, lumbar region; F17.200 Nicotine dependence, unspecified, uncomplicated; Z88.8 Allergy status to other drugs, medicaments and biological substances
CPT/HCPCS: 99211

== ENCOUNTER → 2024-08-24 | Outpatient (CLI) | payer BC, MEDICARE ==
[2024-08-24 14:05] VITALS: BP 127/85; PULSE 83; RESP 16; TEMP 98.9
--- NOTE | 2024-08-24 14:58 | P.PAINPG ---
PQRS Measure Charge Sheet Comment: A 53 yr old female presents today w severe and chronic R wrist pain and LBP secondary to CRPS x 4 yrs due to R wrist surgery, radiculopathy, spondylosis and facet arthropathy without myelopathy for medication refills . Pt states pain level is provoked at 6 /10 in intensity, constant, localized in the BL feet, tingly in character without shooting pain. Pain is provoked by over activity. Pain is alleviated by PT semi weekly since February 2023 (cervical) till current, PT semi weekly x 6 mo which ended in Sep 2023 (lumbar), medications, ice, repositioning and rest. Has not followed up w [facility] and Functional Medicine physician for additional treatment options. Interventional procedures include R Stellate Ganglion Block x2 Medications include Neurontin, Tyl #3, Tyl Arthritis REVIEW OF ORGAN SYSTEMS: CONSTITUTIONAL: No fevers or chills. No recent weight loss. NEUROLOGICAL: + numbness and tingling along the distal extremities. No seizure disorders or headaches. MUSCULOSKELETAL: + pain PSYCHIATRIC: Denies current depression or suicidal thoughts. Physical Examinations : Constitutional : Cooperative , not in acute distress . Neurologic : Cranial nerve II to XII intact. No focal neurological deficits. Psychiatric : alert & oriented x 3. Matching mood & appropriate affect. Judgment & insight intact. Musculoskeletal : R Tinel Sign, R Phalen Sign Cervical Spine Motor strength in the deltoid and biceps: Normal right side. Normal Left side Motor strength biceps and the wrist extensors: Normal right side . Normal left side Motor strength in the triceps muscle: Normal right side. Normal left side Deep tendon reflexes: Normal at the biceps. Normal at Brachioradialis. Normal at triceps Vertebral body tenderness to deep palpation over Cervical facet loading test: positive bilaterally Spurling test: positive bilaterally Neck distraction test: positive bilaterally Alix sign: positive bilaterally Lumbar spine Motor strength lower extremities ,thigh and legs 5/5 Right side , 5/5 Left side Deep tendon reflexes : Normal Knee Jerk. Normal Ankle Jerk Vertebral body tenderness over Torres Test positive Lumbar facet Loading Test: positive Right / positive Left Range of motion of the lumbar spine Flexion 30 degrees, extension 10 degrees Straight Leg Raise test: Left/ Right positive at degree Dave test: positive right / positive left. Severe tenderness over the Sacroiliac joint on the Right / Left sides Gaenslen test: positive bilaterally Seated flexion test: positive bilaterally. Sacral spine : Poor 2pt discrimin in BL planta pedia Severe tenderness over the Sacroiliac joint: right side / left side Range of motion: Flexion of the lumbar spine <60 degrees Range of motion: Extension of the lumbar spine <20 degrees Gaenslen's Test positive Reginald's Test positive Dave test: positive right side / left side Thigh Thrust Test Sacral Thrust Test Imaging: MRI noncontrast of the lumbar spine from 04/12/[address] non contrast of the head and cervical spine from 10/21/21 reviewed Assessment/ Plan : Lumbar levoconvex scoliosis Recommendation of R Stellate Ganglion Block #3 and medication management. Risks, benefits of procedure discussed and pt verbalized understanding. Tyl #3 #30, Neurontin 100mg QAM #30 and Neurontin QHS 300mg #30 w 1 RF. Use, side effects, adverse reactions and safe storage discussed. Opiate/ narcotic agreement signed 08/24/24. UDS fr 03/01/24 reviewed and consistent. Pt acknowledged understanding. All questions answered. I have spent greater than 30 minutes on patient care today. Dr Maldonado was available by phone for the evaluation of this patient. The time was used to review the medical records including relevant urine studies and Prescription history (MAPs), review of the available imaging, evaluation and examination of the patient, coordination of care with the medical staff and if applicable referring physicians, as well as creation of the medical record PQRS Narrative: Smoking Status Current every day smoker Hx Alcohol Use (MH) No Home Medications: Ambulatory Orders amLODIPine [Norvasc] 5 mg PO 1700 07/18/19 Cholecalciferol (Vitamin D3) [Vitamin D3 (3000 Iu)] 75 mcg PO QAM 08/23/23 Loratadine [Claritin] 10 mg PO HS PRN 08/23/23 Multivit with Calcium,Iron,Min [Women's Multivitamin] 1 each PO QAM 08/23/23 Acetaminophen [Tylenol Arthritis] 1,300 mg PO Q8H PRN 01/03/24 Acetaminophen-Codeine 300-30mg [Tylenol w/codeine #3] 1 tab PO DAILY PRN 30 Days #30 tablet 08/24/24 Gabapentin [Gabapentin ER] 300 mg PO HS 30 Days #30 tab 08/24/24 Gabapentin [Neurontin] 100 mg PO DAILY 30 Days #30 cap 08/24/24 Controlled Substance Measures - Controlled Substance Measures Is patient prescribed a controlled substance at discharge?: No
== END ==
LOC: PNWHC3 07:53
PROVIDERS: ATTEND Specialist
DX: M41.86 Other forms of scoliosis, lumbar region (principal); F17.200 Nicotine dependence, unspecified, uncomplicated; Z88.8 Allergy status to other drugs, medicaments and biological substances
CPT/HCPCS: 99211

== ENCOUNTER 2024-09-14 06:05 | Day surgery (SDC) | payer BC, MEDICARE ==
[2024-09-14 06:31] VITALS: TEMP 97.1
[2024-09-14] MEDS ORDERED: DEXAMETHASONE SOD PHOSPHATE 10 MG/ML 1 ML VIAL ONE (07:07)
[2024-09-14] MEDS ORDERED: LACTATED RINGERS 1,000 ML IV SCH (07:07)
[2024-09-14] MEDS ORDERED: ROPIVACAINE 5MG/ML 20ML VIAL ONE (07:07)
--- NOTE | 2024-09-14 07:34 | P.PCN ---
Description of Procedure: ROCEDURES: Right Stellate ganglion block with ultrasound guidance. PREOPERATIVE DIAGNOSIS: 1- RUE CRPS (type I) POSTOPERATIVE DIAGNOSIS: Same ANESTHESIA: Local only with 1% lidocaine EBL: None. COMPLICATIONS: None. INDICATION: The patient presents long history of signs and symptoms suggestive of CRPS of the right arm, presents today for right stellate ganglion block, #1 in this series. Patient has had inability to do physical therapy due to pain and presents for SGB today. No use of blood thinners. PROCEDURE DESCRIPTION: The patient was seen and identified in the preoperative area. Risks, benefits, complications, and alternatives were discussed with the patient, with risks including but not limited to hoarseness, local anesthetic toxicity, bleeding, infection, nerve damage, allergic reactions to medications, and incomplete pain relief. The patient agreed to proceed with the procedure and signed the informed consent after all questions were answered. IV was started and vital signs were stable. Patient was brought to the procedure room and placed in the supine position with a shoulder roll to improve extension of the neck. Cervical area anteriorly was prepped and draped in the usual sterile fashion with focus on the right side of the neck. Using a linear ultrasound probe and sterile cover, the thyroid gland and carotid artery were identified, as was the vertebral artery. The ultrasound was moved cephalad to identify the [place]'s tubercle . signifying the C6 level. After localization with 2 ml of 1% lidocaine plain, a 21 gauge 2 inch quincke Pujung needle was directed behind the carotid artery and anterior to the longus coli muscle. After negative aspiration for CSF or blood and in the absence of paresthesias, solution was injected incrementally with frequent aspiration anterior to the longus colli muscle. Block solution contained 8 mL of 0.25% Ropivacaine preservative free mixed with 20 mg Dexamethasone . Needle was removed intact, skin was cleansed, and bandages were applied. COMPLICATIONS: None. A copy of needle placement was saved to the ultrasound machine and printed out for the patient's records. The patient tolerated the procedure well without complications and had excellent pain relief immediately after the procedure, along with warmth in his right upper extremity. After re-examination, she was discharged home after the procedure after he met all discharge criteria. . She will go to physical therapy today and will be seen in the clinic in a few weeks.
[2024-09-14 07:55] VITALS: BP 111/73; PULSE 79; RESP 16
== END 2024-09-14 08:06 | disposition home or self-care (01) ==
LOC: ORPAIN 06:05
PROVIDERS: ATTEND Pain Medicine Interventional Pain Medicine
DX: G90.511 Complex regional pain syndrome I of right upper limb (principal); Z88.5 Allergy status to narcotic agent
CPT/HCPCS: 64510; J1100; J2795

== ENCOUNTER → 2024-10-16 | Outpatient (CLI) | payer BC, MEDICARE ==
[2024-10-16 08:22] VITALS: BP 143/87; PULSE 82; RESP 16; TEMP 96.8
--- NOTE | 2024-10-16 16:46 | P.PAINPG ---
PQRS Measure Charge Sheet Comment: A 53 yr old female presents today w severe and chronic R wrist pain and LBP secondary to CRPS x 4 yrs due to R wrist surgery, radiculopathy, spondylosis and facet arthropathy without myelopathy for medication refills and R Stellate Ganglion Block #3 . Pt states she experienced % pain relief x 4 wks s/p proce dure. Pt states pain level is provoked at 6 /10 in intensity, constant, localized in the BL feet, tingly in character without shooting pain. Pain is provoked by over activity. Pain is alleviated by PT semi weekly since February 2023 (cervical) till current, PT semi weekly x 6 mo which ended in Sep 2023 (lumbar), medications, ice, repositioning and rest. Has not followed up w [employer] Division Officer and Functional Medicine physician for additional treatment options. Interventional procedures include R Stellate Ganglion Block x2 Medications include Neurontin, Tyl #3, Tyl Arthritis REVIEW OF ORGAN SYSTEMS: CONSTITUTIONAL: No fevers or chills. No recent weight loss. NEUROLOGICAL: + numbness and tingling along the distal extremities. No seizure disorders or headaches. MUSCULOSKELETAL: + pain PSYCHIATRIC: Denies current depression or suicidal thoughts. Physical Examinations : Constitutional : Cooperative , not in acute distress . Neurologic : Cranial nerve II to XII intact. No focal neurological deficits. Psychiatric : alert & oriented x 3. Matching mood & appropriate affect. Judgment & insight intact. Musculoskeletal : R Tinel Sign, R Phalen Sign Cervical Spine Motor strength in the deltoid and biceps: Normal right side. Normal Left side Motor strength biceps and the wrist extensors: Normal right side . Normal left side Motor strength in the triceps muscle: Normal right side. Normal left side Deep tendon reflexes: Normal at the biceps. Normal at Brachioradialis. Normal at triceps Vertebral body tenderness to deep palpation over Cervical facet loading test: positive bilaterally Spurling test: positive bilaterally Neck distraction test: positive bilaterally Alix sign: positive bilaterally Lumbar spine Motor strength lower extremities ,thigh and legs 5/5 Right side , 5/5 Left side Deep tendon reflexes : Normal Knee Jerk. Normal Ankle Jerk Vertebral body tenderness over Torres Test positive Lumbar facet Loading Test: positive Right / positive Left Range of motion of the lumbar spine Flexion 30 degrees, extension 10 degrees Straight Leg Raise test: Left/ Right positive at degree Dave test: positive right / positive left. Severe tenderness over the Sacroiliac joint on the Right / Left sides Gaenslen test: positive bilaterally Seated flexion test: positive bilaterally. Sacral spine : Poor 2pt discrimin in BL planta pedia Severe tenderness over the Sacroiliac joint: right side / left side Range of motion: Flexion of the lumbar spine <60 degrees Range of motion: Extension of the lumbar spine <20 degrees Gaenslen's Test positive Reginald's Test positive Dave test: positive right side / left side Thigh Thrust Test Sacral Thrust Test Imaging: MRI noncontrast of the lumbar spine from 04/12/[address] non contrast of the head and cervical spine from 10/21/21 reviewed Assessment/ Plan : Lumbar levoconvex scoliosis Recommendation of medication management. Will check UDS at next visit.Tyl #3 #30, Neurontin 100mg QAM #30 and Neurontin QHS 300mg #30 w 1 RF. Use, side effects, adverse reactions and safe storage discussed. Opiate/ narcotic agreement signed 08/24/24. Pt acknowledged understanding. All questions answered. I have spent greater than 30 minutes on patient care today. Dr Maldonado was available by phone for the evaluation of this patient. The time was used to review the medical records including relevant urine studies and Prescription history (MAPs), review of the available imaging, evaluation and examination of the patient, coordination of care with the medical staff and if applicable referring physicians, as well as creation of the medical record - Pain Location Right Lower Neck Non-Pharmacological Interventions: Ice, Physical Therapy, Position/Reposition, Sitting Pharmacological Interventions: Block, Epidural, PRN Medication, Scheduled Medication, Topical Medication PQRS Narrative: Smoking Status Current every day smoker Narcotic Agreement Date Signed 08/24/24 Hx Alcohol Use (MH) No Home Medications: Ambulatory Orders amLODIPine [Norvasc] 5 mg PO 1700 07/18/19 Cholecalciferol (Vitamin D3) [Vitamin D3 (3000 Iu)] 75 mcg PO QAM 08/23/23 Loratadine [Claritin] 10 mg PO HS PRN 08/23/23 Multivit with Calcium,Iron,Min [Women's Multivitamin] 1 each PO QAM 08/23/23 Acetaminophen [Tylenol Arthritis] 1,300 mg PO Q8H PRN 01/03/24 Acetaminophen-Codeine 300-30mg [Tylenol w/codeine #3] 1 tab PO DAILY PRN 30 Days #30 tablet 10/16/24 Gabapentin [Gabapentin ER] 300 mg PO HS 30 Days #30 tab 10/16/24 Gabapentin [Neurontin] 100 mg PO DAILY 30 Days #30 cap 10/16/24 Controlled Substance Measures - Controlled Substance Measures Is patient prescribed a controlled substance at discharge?: Yes When asked, does pt state using other controlled substances?: No If prescribed controlled substance>3 days was MAPS reviewed?: Yes
== END ==
LOC: PNWHC3 08:01
PROVIDERS: ATTEND Specialist
DX: M41.86 Other forms of scoliosis, lumbar region (principal); F17.200 Nicotine dependence, unspecified, uncomplicated; Z88.8 Allergy status to other drugs, medicaments and biological substances
CPT/HCPCS: 99211